=== PATIENT | male | born 1955 | race Caucasian/White ===

== ENCOUNTER 2016-07-26 07:30 | Inpatient (IN) | payer OTHER ==
[~2016-07-26] VITALS: Ht 182.9 cm; Wt 98.9 kg
[2016-08-02] MEDS ORDERED: MOME13HF2 INHALATION (01:54)
[2016-08-02] MEDS ORDERED: MONT4TAB10 PO (01:54)
[2016-08-02] MEDS ORDERED: ALBU8.5H3 INH ×2 (01:54→03:29)
[2016-08-02] MEDS ORDERED: CETI10CA PO (03:29)
[2016-08-02] MEDS ORDERED: GUAI473L22 PO (03:29)
[2016-08-02] MEDS ORDERED: PRED50TA PO (03:29)
[2016-08-29] VITALS (23 sets, daily range): BP systolic 87–138; BP diastolic 64–92; PULSE 72–109; RESP 12–28; Ht 182.9 cm; Wt 98.9 kg
[2016-08-29] MEDS ORDERED: CEFTRIAXONE 1 GM/NS 50 ML IVPB SCH (07:00)
[2016-08-29] MEDS ORDERED: FINA5TAB4 PO (11:57)
[2016-08-29] MEDS ORDERED: FLUT12HF2 IH (11:57)
[2016-08-29] MEDS ORDERED: TAMS0.4C2 PO (11:57)
[2016-08-29] MEDS ORDERED: MONT10TA24 PO (11:57)
[2016-08-29] MEDS ORDERED: ALBU8.5H3 INH (11:57)
[2016-08-29] MEDS ORDERED: LACTATED RINGER'S 1,000 ML IV SCH (12:00)
--- NOTE | 2016-08-29 12:37 | HPN ---
Date/Time of Note Date/Time of Note DATE: 08/29/16 TIME: 12:37 Interval H&P Admission Note Pt. seen H&P reviewed: No system changes SHERIE BETTS MD Aug 29, 2016 12:37
[2016-08-29] MEDS ORDERED: PROPOFOL 40 ML ONE (12:40)
[2016-08-29] MEDS ORDERED: ROCURONIUM 50 MG INJ ONE (12:40)
[2016-08-29] MEDS ORDERED: LIDOCAINE 2% (SDV) 5 ML INJ ONE (12:40)
[2016-08-29] MEDS ORDERED: NEOSTIGMINE 3 MG/3 ML SYRINGE ONE (12:40)
[2016-08-29] MEDS ORDERED: morphine SULFATE/PF (10 MG/10 ML) INJ ONE (12:40)
[2016-08-29] MEDS ORDERED: GLYCOPYRROLATE 0.4 MG INJ ONE (12:40)
[2016-08-29] MEDS ORDERED: SUCCINYLCHOLINE CHLORIDE 100 MG/5 ML SYG IV ONE (12:40)
[2016-08-29] MEDS ORDERED: FENTAnyl 50 MCG/ML VIAL ONE (12:40)
[2016-08-29] MEDS ORDERED: DEXAMETHASONE 4 MG/ML 1 ML INJ ONE (13:26)
[2016-08-29] MEDS ORDERED: ONDANSETRON 4 MG INJ IV PRN (14:00)
[2016-08-29] MEDS ORDERED: MEPERIDINE 25 MG INJ IV PRN (14:00)
[2016-08-29] MEDS ORDERED: HYDROmorphONE (0.2 MG/ML) 10ML SYG IV PRN ×3 (14:00)
[2016-08-29] MEDS ORDERED: METOCLOPRAMIDE 10 MG INJ IV PRN (14:00)
[2016-08-29] MEDS ORDERED: DIPHENHYDRAMINE 50 MG INJ IV PRN (14:00)
[2016-08-29] MEDS ORDERED: FENTAnyl 50 MCG/ML VIAL IV PRN ×2 (14:00)
[2016-08-29] MEDS ORDERED: hydrALAzine 20 MG INJ ONE (16:30)
[2016-08-29 17:01] LABS: HEMATOCRIT 18.7 % (42.0-52.0)
[2016-08-29 17:24] LABS: ADD SCAN DIFF NO
[2016-08-29 17:26] LABS: BASOPHILS % 0.2 % (0.0-2.0); EOSINOPHILS % 0.1 % (0.0-7.0); HEMATOCRIT 38.5 % (42.0-52.0); LYMPHOCYTES # 1.1 10^3/ul (0.8-2.9); LYMPHOCYTES % 8.8 % (15.0-51.0); MEAN CORPUSCULAR HEMOGLOBIN 30.3 pg (29.0-33.0); MEAN CORPUSCULAR HGB CONC 33.8 g/dl (32.0-37.0); MEAN CORPUSCULAR VOLUME 89.7 fl (82.0-101.0); MEAN PLATELET VOLUME 12.9 fl (7.4-10.4); MONOCYTE # 0.2 10^3/ul (0.3-0.9); MONOCYTES % 1.4 % (0.0-11.0); NEUTROPHIL # 11.2 10^3/ul (1.6-7.5); NEUTROPHILS % 88.7 % (39.0-77.0); PLATELET COUNT 156 10^3/UL (140-415); RED BLOOD COUNT 4.29 10^6/ul (4.70-6.10); RED CELL DISTRIBUTION WIDTH 12.6 % (11.5-14.5); WHITE BLOOD COUNT 12.7 10^3/ul (4.8-10.8)
[2016-08-29 17:35] LABS: ALBUMIN 2.9 g/dl (3.3-4.9)
[2016-08-29 17:38] LABS: ALBUMIN/GLOBULIN RATIO 1.16; BILIRUBIN,INDIRECT 0.4 mg/dl (0-1.1); BILIRUBIN,TOTAL 0.4 mg/dl (0.2-1.3); TOTAL PROTEIN 5.4 g/dl (6.1-8.1)
[2016-08-29 17:42] LABS: CALCIUM 8.6 mg/dl (8.4-10.2); CREATININE 0.6 mg/dl (0.61-1.24); POTASSIUM 4.2 mmol/L (3.5-5.1)
[2016-08-29 17:48] LABS: ADD SCAN DIFF NO
[2016-08-29 17:51] LABS: BASOPHIL # 0.1 10^3/ul (0.0-0.1); BASOPHILS % 0.3 % (0.0-2.0); EOSINOPHILS % 0.1 % (0.0-7.0); HEMATOCRIT 39.9 % (42.0-52.0); HEMOGLOBIN 13.6 g/dl (14.0-18.0); LYMPHOCYTES # 0.9 10^3/ul (0.8-2.9); LYMPHOCYTES % 5.3 % (15.0-51.0); MEAN CORPUSCULAR HEMOGLOBIN 30.4 pg (29.0-33.0); MEAN CORPUSCULAR HGB CONC 34.1 g/dl (32.0-37.0); MEAN CORPUSCULAR VOLUME 89.3 fl (82.0-101.0); MEAN PLATELET VOLUME 12.9 fl (7.4-10.4); MONOCYTE # 0.3 10^3/ul (0.3-0.9); MONOCYTES % 1.6 % (0.0-11.0); NEUTROPHIL # 16.2 10^3/ul (1.6-7.5); PLATELET COUNT 152 10^3/UL (140-415); RED BLOOD COUNT 4.47 10^6/ul (4.70-6.10); RED CELL DISTRIBUTION WIDTH 12.6 % (11.5-14.5); WHITE BLOOD COUNT 17.7 10^3/ul (4.8-10.8)
--- NOTE | 2016-08-29 18:17 | HP ---
Date/Time of Note Date/Time of Note DATE: 08/29/16 TIME: 18:12 Assessment/Plan VTE Prophylaxis VTE Prophylaxis Intervention: SCD's VTE Contraindication Reason: bleeding Lines/Catheters IV Catheter Type (from Nrsg): Peripheral IV Assessment/Plan Assessment/Plan 61 yo male with no significant past medical history who came in for outpatient surgery prostatectomy. 1. s/p Prostatectomy - as per urology, POD # 0 - pain management, monitor urine output 2. Anemia - acute blood loss - monitor H/H q6h - transfuse as needed 3. GI ppx - pepcid 4. DVT ppx - scds answered all of his questions. as per clinical course. Thank you Dr. Perez for letting me participate in the care of this patient this consult note took greater than 45 min to complete HPI/ROS Admit Date/Time Admit Date/Time Aug 29, 2016 at 10:24 Hx of Present Illness 61 yo male with no significant past medical history who came in for outpatient surgery prostatectomy. The patient had significant bleeding post-operatively and requires emergent transfusion and irrigation. He denies any chest pain, shortness of breath, loss of consciousness, nausea/vomiting/diarrhea/ constipation, or any other constitutional symptoms. ROS 14 point review of systems completed, please refer to HPI for any positive findings PMH/Family/Social Past Medical History Medical History: no pertinent history Past Surgical History left inguinal hernia Family History Significant Family History: no pertinent family hx Social History Alcohol Use: none Smoking Status: Never smoker Drug Use: none Exam/Review of Systems Vital Signs Vitals Vital Signs Date Time Temp Pulse Resp B/P Pulse Ox O2 Delivery O2 Flow Rate FiO2 08/29/16 17:24 98.2 08/29/16 11:59 72 16 138/90 97 Room Air Exam Exam Gen Herminio: mild distress 2/2 suprapubic pain, AAOx4 HEENT: NC/AT, PERRLA, EOMI, no pharyngeal erythema, no tonsillar exudates, no lymphadenopathy, no JVD, no carotid bruits NECK: supple, no thyromegaly THORAX: symmetrical, no obvious deformities CV: S1S2, RRR, no M/G/R Lungs: CTAB no W/C/R/R Abd: soft, NT/ND, +BS, no rebound, no guarding, neg HSM EXT: no edema, no ecchymosis, no clubbing, FROM Neuro: CN II-XII grossly intact, no focal deficits Psych: good mentation, alert and oriented, good mood and affect Skin: C/D/I Labs Result Diagram: 08/29/16 1745 08/29/16 1718 Medications Medications Current Medications Lactated Ringer's 1,000 ml @ 30 mls/hr Q24H IV ; Start 08/29/16 at 12:00 Dextrose/Sodium Chloride 1,000 ml @ 50 mls/hr Q20H IV ; Start 08/29/16 at 17:58 ; Status UNV Ceftriaxone Sodium (Rocephin) 50 ml @ 100 mls/hr Q24H IVPB ; Start 08/29/16 at 18:30; Status UNV Hydromorphone HCl (Dilaudid) 1 mg Q4H PRN IV PAIN; Start 08/29/16 at 18:30; Status UNV SHIVAM CHURCH MD Aug 29, 2016 18:17
[2016-08-29] MEDS: DEXTROSE 5%-0.45% NACL 1,000 ML IV SCH (20:32)
[2016-08-29] MEDS: CEFTRIAXONE 1 GM/50 ML (PMX) 50 ML IVPB SCH (20:42)
[2016-08-29] MEDS: HYDROmorphONE 1 MG/ML SYG IV PRN (23:02)
[2016-08-30] VITALS (24 sets, daily range): BP systolic 102–147; BP diastolic 46–95; PULSE 71–96; RESP 12–19
[2016-08-30] MEDS: HYDROmorphONE 1 MG/ML SYG IV PRN ×5 (03:31→20:27)
--- NOTE | 2016-08-30 06:37 | OPR ---
DATE OF OPERATION: 08/29/2016 PREOPERATIVE DIAGNOSIS: Benign prostatic hypertrophy with lower urinary tract symptoms and a very l arge prostate. POSTOPERATIVE DIAGNOSIS: Benign prostatic hypertrophy with lower urinary tract symptoms and a very large prostate. OPERATION PERFORMED: Suprapubic prostatectomy. TECHNIQUE: The patient was brought to the operating room. The patient was given 1 gram of ceftriax one IV and he was given spinal anesthesia was Duramorph by the anesthesiologist, and also was given general endotracheal anesthesia. Sequential compressive devices were applied on his lower extremiti es. The patient was positioned on the operating table in the supine position. A roll of towel was put underneath his sacral area to elevate his pelvic area. Then the lower abdomen was shaved. Then the patient's abdomen, genital area and upper thighs were prepped and draped in the usual sterile m joce. A low midline incision was made and deepened through the subcutaneous tissue. I put a 16-Fr ench Jones catheter, but the Jones catheter would not go in because of the large prostate. Then ins tead of a regular Jones I put in a Coude catheter. Then I inserted a 16-Haitian Coude catheter and t he Coude catheter went into the bladder. I filled up the bladder was about 360 mL of sterile normal saline to distend the bladder. A suprapubic incision was made and deepened through subcutaneous ti ssue. The linea alba in the midline was incised. Then the rectus muscle was retracted laterally, a nd the bladder was exposed. A Bookwalter retractor was then used to retract the abdominal sides. T hen stay sutures were put on the bladder with 0 Vicryl and then the bladder was opened and all the n ormal saline that was put inside of it was suctioned. The prostate had a very large median lobe prot ruding into the bladder. The ureteral orifices were identified, where urine was seen coming out of them. At that moment, using the electrocautery, I cauterized the mucosa on the prostate side away f rom the ureteral orifices, prostatic and bladder area, and then gradually started enucleating the pr ostate. It was a very large prostate and it took some work for it to be enucleated and make sure th at the ureteral orifices were away, and that is what we did first, by cutting the mucosa away from t he ureteral orifices. After the prostate was enucleated posteriorly, then laterally and then anteri jerrica, it was not much large anteriorly, it was mostly posteriorly and on both lateral sides. The Fo ty catheter that the patient had was removed and the prostate was removed en bloc in 1 piece. Then the prostatic fossa was packed with packed to control bleeders. Then I put Allis's at the bladder neck area at the 7 and 5 o'clock positions and then did a posterior interlocking running suture betw een the 5 and 7 o'clock positions using #0 Vicryl running interlocked sutures. Then I did also clos e it anteriorly from the 7 o'clock, all the way until around the 3 and 4 o'clock position. In [facility], all the [place] of the bladder neck was suture ligated with running interlocking sutures and it i s wide open. At that moment, I removed the packing and then also put other sutures below that and I did do electrocoagulation of any bleeders in the prostatic fossa that I could see. It appears that there was no active bleeding and at that moment I inserted a 24-Haitian 3-way 30-mL balloon Jones ca theter and brought that catheter all the way into the bladder. The balloon was initially inflated t o 60 mL of sterile water. Then I did close the bladder with 0 Vicryl running interlocking sutures, as well as reinforcing sutures in between. I inserted the 16-Haitian suprapubic catheter through the bladder incision and brought it out through the abdominal incision. Then I did insert the KYLAH drain and brought it through a different stab wound incision and then we ran continuous bladder irrigatio n through the suprapubic tube and coming out through the Jones catheter. The return was perfectly c lear and there was no active bleeding. Then I did close the linea alba with 0 Vicryl [id number] interrupted sutures. I put in a KYLAH drain and brought it through a different stab wound incision. The subcutaneous tissue was approximated with 3-0 Vicryl and the skin approximated with rosa maria. A t the end of the procedure, the incision was covered with sterile dressing and continuous bladder ir rigation was going from the suprapubic tube into the bladder and coming out through the urethral cat heter. As we were getting ready to move the patient suddenly he started bleeding in the Jones catheter and the bleeding was such that we had to increase the irrigation completely wide open, and even with nathalia t, the return was very bloody. I then had inflated the balloon of the Jones catheter with an additi onal 60 mL, for a total of about maybe 120 mL, and applied manual traction on the Jones catheter. I t did clear for a while, then started bleeding again, so I kept the patient in the operating room al l this time and made sure that the irrigation was running fast. I kept him over an hour and a half until I was able to see that the return was clear with the irrigation going in. At some time I even thought of reopening him to try to see where the bleeders were and try to take care of that, but fo rtunately, the irrigation was good enough and the traction was good enough to clear the urine and ke ep it draining. At that moment when he was stable, then we had him transferred to the recovery room , and from the recovery room he was transferred to the intensive care unit so we could monitor his b ladder irrigation and make sure that the irrigation does not go dry and that he does not bleed and c log his Jones catheter. Dictated By: SHERIE JAUREGUI/TERRI Conf#: [id number] DID#: [id number]
--- NOTE | 2016-08-30 08:59 | CONS ---
Date/Time of Note Date/Time of Note DATE: 08/30/16 TIME: 08:57 Assessment/Plan Assessment/Plan Additional Assessment/Plan 61 yo male with no significant past medical history who came in for outpatient surgery prostatectomy. 1. s/p Prostatectomy - as per urology, POD # 1 - pain management, monitor urine output 2. Anemia - acute blood loss - monitor H/H q6h - transfuse as needed - awaiting labs 3. GI ppx - pepcid 4. DVT ppx - scds answered all of his questions. as per clinical course. Thank you Dr. Perez for letting me participate in the care of this patient this consult note took greater than 35 min to complete Consultation Date/Type/Reason Admit Date/Time Aug 29, 2016 at 10:24 Initial Consult Date Type of Consultation: Medicine Reason for Consultation Medical Management Referring Provider: SHERIE PEREZ MD 24 HR Interval Summary Free Text/Dictation No overnight events. He notices less blood clots through the becerra. Denies any chest pain/shortness of breath. Spoke to the nurse about the care plan. 15 minutes spent. Exam/Review of Systems Vital Signs Vitals Vital Signs Date Time Temp Pulse Resp B/P Pulse Ox O2 Delivery O2 Flow Rate FiO2 08/30/16 08:00 98.7 89 16 107/74 99 Nasal Cannula 2.0 Intake and Output 08/29/16 08/29/16 08/30/16 15:00 23:00 07:00 Intake Total 4550 ml 300 ml Output Total 1710 ml 220 ml Balance 2840 ml 80 ml Exam Gen Herminio: mild distress 2/2 suprapubic pain, AAOx4 HEENT: NC/AT, PERRLA, EOMI, no pharyngeal erythema, no tonsillar exudates, no lymphadenopathy, no JVD, no carotid bruits NECK: supple, no thyromegaly THORAX: symmetrical, no obvious deformities CV: S1S2, RRR, no M/G/R Lungs: CTAB no W/C/R/R Abd: soft, NT/ND, +BS, no rebound, no guarding, neg HSM EXT: no edema, no ecchymosis, no clubbing, FROM Neuro: CN II-XII grossly intact, no focal deficits Psych: good mentation, alert and oriented, good mood and affect Skin: C/D/I Results Result Diagram: 08/29/16 1745 08/29/16 1718 Results 24 hrs Laboratory Tests Test 08/29/16 16:23 08/29/16 17:18 08/29/16 17:45 Hematocrit 18.7 L 38.5 #L 39.9 L Hemoglobin 6.0 *L 13.0 #L 13.6 L Alanine Aminotransferase (ALT/SGPT) 46 Albumin 2.9 L Albumin/Globulin Ratio 1.16 Alkaline Phosphatase 73 Anion Gap 13 Aspartate Amino Transf (AST/SGOT) 26 Basophils # 0.0 0.1 Basophils % 0.2 0.3 Blood Urea Nitrogen 11 Calcium Level 8.6 Carbon Dioxide Level 27 Chloride Level 104 Creatinine 0.60 L Direct Bilirubin 0.00 Eosinophils # 0.0 0.0 Eosinophils % 0.1 0.1 Globulin 2.50 Glucose Level 174 Indirect Bilirubin 0.4 Lymphocytes # 1.1 0.9 Lymphocytes % 8.8 L 5.3 L Mean Corpuscular Hemoglobin 30.3 30.4 Mean Corpuscular Hemoglobin Concent 33.8 34.1 Mean Corpuscular Volume 89.7 89.3 Mean Platelet Volume 12.9 H 12.9 H Monocytes # 0.2 L 0.3 Monocytes % 1.4 1.6 Neutrophils # 11.2 H 16.2 H Neutrophils % 88.7 H 92.0 H Nucleated Red Blood Cells # 0.0 0.0 Nucleated Red Blood Cells % 0.0 0.0 Platelet Count 156 152 Potassium Level 4.2 Red Blood Count 4.29 L 4.47 L Red Cell Distribution Width 12.6 12.6 Sodium Level 140 Total Bilirubin 0.4 Total Protein 5.4 L White Blood Count 12.7 H 17.7 #H Medications Medications Current Medications Dextrose/Sodium Chloride 1,000 ml @ 50 mls/hr Q20H IV Last administered on 20:32; Admin Dose 50 MLS/HR; Start 08/29/16 at 17:58 Ceftriaxone Sodium (Rocephin) 50 ml @ 100 mls/hr Q24H IVPB Last administered on 08/29/16 20:42; Admin Dose 100 MLS/HR; Start 08/29/16 at 18:30 Hydromorphone HCl (Dilaudid) 1 mg Q4H PRN IV PAIN Last administered on 08:32; Admin Dose 1 MG; Start 08/29/16 at 18:30 SHIVAM CHURCH MD Aug 30, 2016 08:59
[2016-08-30 09:19] LABS: POTASSIUM 4.8 mmol/L (3.5-5.1)
[2016-08-30 09:21] LABS: CREATININE 0.8 mg/dl (0.61-1.24)
[2016-08-30 09:23] LABS: CALCIUM 8.9 mg/dl (8.4-10.2)
[2016-08-30 09:42] LABS: HEMATOCRIT 38.1 % (42.0-52.0); HEMOGLOBIN 13.1 g/dl (14.0-18.0); LYMPHOCYTES # 1.1 10^3/ul (0.8-2.9); LYMPHOCYTES % 8.9 % (15.0-51.0); MEAN CORPUSCULAR HEMOGLOBIN 30.6 pg (29.0-33.0); MEAN CORPUSCULAR HGB CONC 34.3 g/dl (32.0-37.0); MEAN CORPUSCULAR VOLUME 89.4 fl (82.0-101.0); MEAN PLATELET VOLUME 12.3 fl (7.4-10.4); MONOCYTE # 0.9 10^3/ul (0.3-0.9); MONOCYTES % 7.6 % (0.0-11.0); NEUTROPHIL # 10.1 10^3/ul (1.6-7.5); NEUTROPHILS % 83.5 % (39.0-77.0); PLATELET COUNT 143 10^3/UL (140-440); RED BLOOD COUNT 4.26 10^6/ul (4.70-6.10); RED CELL DISTRIBUTION WIDTH 13.5 % (11.5-14.5); UNCORRECTED WBC 12.1 10^3/ul (4.8-10.8); WHITE BLOOD COUNT 12.1 10^3/ul (4.8-10.8)
[2016-08-30 09:51] LABS: CONDITION 1
[2016-08-30] MEDS: DEXTROSE 5%-0.45% NACL 1,000 ML IV SCH (10:38)
[2016-08-30] MEDS: FERROUS SULFATE (EC) 325 MG TAB PO SCH ×2 (10:43→20:27)
[2016-08-30] MEDS: DOCUSATE SODIUM 100 MG CAP PO SCH ×2 (10:43→20:27)
--- NOTE | 2016-08-30 11:35 | PN ---
DATE: 08/30/2016 SUBJECTIVE: The patient is status post suprapubic prostatectomy. The patient is on continuous blad ramos irrigation. He is feeling much better today and he is awake, alert and comfortable. He does lara ve pain that is being managed with pain medications. OBJECTIVE VITAL SIGNS: His temperature is 98.7, pulse is 89, respirations 16 and the blood pressure 107/74. ABDOMEN: Soft. The Jones catheter is draining clear urine with continuous bladder irrigation. In fact, the rate of the bladder irrigation is much slower today than it has been yesterday. LABORATORY DATA: CBC shows a white count of 12.1, hemoglobin is 13.1, hematocrit 38.1. The BUN is 14, creatinine 0.8. Electrolytes are normal. Urine culture no growth in 24 hours. Patient is on c eftriaxone and pain medications. IMPRESSION: Status post suprapubic prostatectomy. Vital signs are stable. His hemoglobin is 13.1. He received 1 unit of blood yesterday and he is doing well, so will continue him on the bladder ir rigation and I will also start him on ferrous sulfate and Colace. Dictated By: SHERIE JAUREGUI/TERRI Conf#: [id number] DID#: [id number]
[2016-08-30 12:18] LABS: BASOPHILS % 0.3 % (0.0-2.0); EOSINOPHILS % 0.3 % (0.0-7.0); HEMATOCRIT 36.2 % (42.0-52.0); HEMOGLOBIN 12.5 g/dl (14.0-18.0); LYMPHOCYTES # 1.3 10^3/ul (0.8-2.9); LYMPHOCYTES % 11.4 % (15.0-51.0); MEAN CORPUSCULAR HEMOGLOBIN 30.6 pg (29.0-33.0); MEAN CORPUSCULAR HGB CONC 34.5 g/dl (32.0-37.0); MEAN CORPUSCULAR VOLUME 88.8 fl (82.0-101.0); MEAN PLATELET VOLUME 11.1 fl (7.4-10.4); MONOCYTES % 8.5 % (0.0-11.0); NEUTROPHIL # 8.9 10^3/ul (1.6-7.5); NEUTROPHILS % 79.5 % (39.0-77.0); PLATELET COUNT 143 10^3/UL (140-440); RED BLOOD COUNT 4.08 10^6/ul (4.70-6.10); RED CELL DISTRIBUTION WIDTH 13.5 % (11.5-14.5); UNCORRECTED WBC 11.2 10^3/ul (4.8-10.8); WHITE BLOOD COUNT 11.2 10^3/ul (4.8-10.8)
[2016-08-30 12:21] LABS: CONDITION 1
[2016-08-30] MEDS: CEFTRIAXONE 1 GM/50 ML (PMX) 50 ML IVPB SCH (18:08)
[2016-08-30 18:57] LABS: BASOPHILS % 0.4 % (0.0-2.0); EOSINOPHILS # 0.1 10^3/ul (0.0-0.5); EOSINOPHILS % 0.8 % (0.0-7.0); HEMATOCRIT 37.6 % (42.0-52.0); HEMOGLOBIN 12.9 g/dl (14.0-18.0); LYMPHOCYTES # 1.8 10^3/ul (0.8-2.9); LYMPHOCYTES % 16.7 % (15.0-51.0); MEAN CORPUSCULAR HEMOGLOBIN 30.4 pg (29.0-33.0); MEAN CORPUSCULAR HGB CONC 34.3 g/dl (32.0-37.0); MEAN CORPUSCULAR VOLUME 88.7 fl (82.0-101.0); MEAN PLATELET VOLUME 11.7 fl (7.4-10.4); MONOCYTE # 0.9 10^3/ul (0.3-0.9); MONOCYTES % 8.5 % (0.0-11.0); NEUTROPHIL # 7.8 10^3/ul (1.6-7.5); NEUTROPHILS % 73.6 % (39.0-77.0); PLATELET COUNT 152 10^3/UL (140-440); RED BLOOD COUNT 4.24 10^6/ul (4.70-6.10); RED CELL DISTRIBUTION WIDTH 13.5 % (11.5-14.5); UNCORRECTED WBC 10.6 10^3/ul (4.8-10.8); WHITE BLOOD COUNT 10.6 10^3/ul (4.8-10.8)
[2016-08-30 18:59] LABS: CONDITION 1
[2016-08-30] MEDS: TOLTERODINE (SR) 4 MG CAP PO SCH (20:21)
[2016-08-31] VITALS (27 sets, daily range): BP systolic 125–168; BP diastolic 56–99; PULSE 82–100; RESP 14–25
[2016-08-31] MEDS: HYDROmorphONE 1 MG/ML SYG IV PRN ×6 (01:21→20:57)
[2016-08-31 01:33] LABS: BASOPHILS % 0.4 % (0.0-2.0); EOSINOPHILS # 0.1 10^3/ul (0.0-0.5); EOSINOPHILS % 0.6 % (0.0-7.0); HEMATOCRIT 35.7 % (42.0-52.0); HEMOGLOBIN 12.2 g/dl (14.0-18.0); LYMPHOCYTES # 1.6 10^3/ul (0.8-2.9); LYMPHOCYTES % 14.5 % (15.0-51.0); MEAN CORPUSCULAR HEMOGLOBIN 30.5 pg (29.0-33.0); MEAN CORPUSCULAR HGB CONC 34.2 g/dl (32.0-37.0); MEAN CORPUSCULAR VOLUME 89.3 fl (82.0-101.0); MEAN PLATELET VOLUME 12.5 fl (7.4-10.4); MONOCYTE # 0.9 10^3/ul (0.3-0.9); MONOCYTES % 8.4 % (0.0-11.0); NEUTROPHIL # 8.2 10^3/ul (1.6-7.5); NEUTROPHILS % 75.4 % (39.0-77.0); PLATELET COUNT 167 10^3/UL (140-415); WHITE BLOOD COUNT 10.8 10^3/ul (4.8-10.8)
[2016-08-31 04:46] LABS: BASOPHILS % 0.3 % (0.0-2.0); EOSINOPHILS # 0.1 10^3/ul (0.0-0.5); EOSINOPHILS % 0.5 % (0.0-7.0); HEMATOCRIT 37.2 % (42.0-52.0); HEMOGLOBIN 12.6 g/dl (14.0-18.0); LYMPHOCYTES # 1.4 10^3/ul (0.8-2.9); LYMPHOCYTES % 11.9 % (15.0-51.0); MEAN CORPUSCULAR HEMOGLOBIN 30.2 pg (29.0-33.0); MEAN CORPUSCULAR HGB CONC 33.9 g/dl (32.0-37.0); MEAN CORPUSCULAR VOLUME 89.2 fl (82.0-101.0); MONOCYTE # 0.9 10^3/ul (0.3-0.9); MONOCYTES % 7.5 % (0.0-11.0); NEUTROPHIL # 9.6 10^3/ul (1.6-7.5); NEUTROPHILS % 79.8 % (39.0-77.0); PLATELET COUNT 156 10^3/UL (140-440); POTASSIUM 4.2 mmol/L (3.5-5.1); RED BLOOD COUNT 4.17 10^6/ul (4.70-6.10); RED CELL DISTRIBUTION WIDTH 13.3 % (11.5-14.5); UNCORRECTED WBC 12.1 10^3/ul (4.8-10.8); WHITE BLOOD COUNT 12.1 10^3/ul (4.8-10.8)
[2016-08-31 04:49] LABS: CREATININE 0.83 mg/dl (0.61-1.24)
[2016-08-31 04:50] LABS: CALCIUM 8.6 mg/dl (8.4-10.2)
[2016-08-31 05:18] LABS: CONDITION 1
[2016-08-31] MEDS ORDERED: HYDROmorphONE 2 MG/ML SYG IV PRN (05:30)
[2016-08-31] MEDS: DEXTROSE 5%-0.45% NACL 1,000 ML IV SCH (06:56)
[2016-08-31] MEDS: TOLTERODINE (SR) 4 MG CAP PO SCH (08:17)
[2016-08-31] MEDS: DOCUSATE SODIUM 100 MG CAP PO SCH ×2 (08:18→21:37)
[2016-08-31] MEDS: FERROUS SULFATE (EC) 325 MG TAB PO SCH ×2 (08:18→21:37)
--- NOTE | 2016-08-31 08:59 | CONS ---
Date/Time of Note Date/Time of Note DATE: 08/31/16 TIME: 08:57 Assessment/Plan Assessment/Plan Additional Assessment/Plan 61 yo male with no significant past medical history who came in for outpatient surgery prostatectomy. 1. s/p Prostatectomy - as per urology, POD # 2 - pain management, monitor urine output 2. Anemia - acute blood loss - monitor H/H q6h - transfuse as needed - awaiting labs - s/p transfusion 1 unit PRBCs 3. GI ppx - pepcid 4. DVT ppx - scds answered all of his questions. as per clinical course. Thank you Dr. Perez for letting me participate in the care of this patient this consult note took greater than 35 min to complete Consultation Date/Type/Reason Admit Date/Time Aug 29, 2016 at 10:24 Type of Consultation: Medicine Referring Provider: SHERIE PEREZ MD 24 HR Interval Summary Free Text/Dictation Patient had no overnight events. Still with hematuria, improving once rate of normal saline flush increased. Spoke to the nurse about the care plan. 15 minutes spent. Exam/Review of Systems Vital Signs Vitals Vital Signs Date Time Temp Pulse Resp B/P Pulse Ox O2 Delivery O2 Flow Rate FiO2 08/31/16 08:40 95 08/31/16 08:00 99.0 16 139/89 92 Room Air 08/30/16 18:00 2.0 Intake and Output 08/30/16 08/30/16 08/31/16 15:00 23:00 07:00 Intake Total 1400 ml 1100 ml 350 ml Output Total 3050 ml 2025 ml 1725 ml Balance -1650 ml -925 ml -1375 ml Exam Gen Herminio: mild distress 2/2 suprapubic pain, AAOx4 HEENT: NC/AT, PERRLA, EOMI, no pharyngeal erythema, no tonsillar exudates, no lymphadenopathy, no JVD, no carotid bruits NECK: supple, no thyromegaly THORAX: symmetrical, no obvious deformities CV: S1S2, RRR, no M/G/R Lungs: CTAB no W/C/R/R Abd: soft, NT/ND, +BS, no rebound, no guarding, neg HSM EXT: no edema, no ecchymosis, no clubbing, FROM Neuro: CN II-XII grossly intact, no focal deficits Psych: good mentation, alert and oriented, good mood and affect Skin: C/D/I Results Result Diagram: 08/31/16 0400 08/31/16 0400 Results 24 hrs Laboratory Tests Test 08/30/16 12:04 08/30/16 18:15 08/31/16 00:50 08/31/16 04:00 Basophils # 0.0 0.0 0.0 0.0 Basophils % 0.3 0.4 0.4 0.3 Blood Morphology Comment Eosinophils # 0.0 0.1 0.1 0.1 Eosinophils % 0.3 0.8 0.6 0.5 Hematocrit 36.2 L 37.6 L 35.7 L 37.2 L Hemoglobin 12.5 L 12.9 L 12.2 L 12.6 L Lymphocytes # 1.3 1.8 1.6 1.4 Lymphocytes % 11.4 L 16.7 14.5 L 11.9 L Mean Corpuscular Hemoglobin 30.6 30.4 30.5 30.2 Mean Corpuscular Hemoglobin Concent 34.5 34.3 34.2 33.9 Mean Corpuscular Volume 88.8 88.7 89.3 89.2 Mean Platelet Volume 11.1 H 11.7 H 12.5 H 12.0 H Monocytes # 1.0 H 0.9 0.9 0.9 Monocytes % 8.5 8.5 8.4 7.5 Neutrophils # 8.9 H 7.8 H 8.2 H 9.6 H Neutrophils % 79.5 H 73.6 75.4 79.8 H Nucleated Red Blood Cells # 0.0 0.0 0.0 0.0 Nucleated Red Blood Cells % 0.0 0.0 0.0 0.0 Platelet Count 143 152 167 156 Red Blood Count 4.08 L 4.24 L 4.00 L 4.17 L Red Cell Distribution Width 13.5 13.5 13.0 13.3 White Blood Count 11.2 H 10.6 10.8 12.1 H Anion Gap 12 Blood Urea Nitrogen 13 Calcium Level 8.6 Carbon Dioxide Level 29 Chloride Level 100 Creatinine 0.83 Glucose Level 134 Potassium Level 4.2 Sodium Level 137 Medications Medications Current Medications Dextrose/Sodium Chloride 1,000 ml @ 50 mls/hr Q20H IV Last administered on 06:56; Admin Dose 50 MLS/HR; Start 08/29/16 at 17:58 Ceftriaxone Sodium (Rocephin) 50 ml @ 100 mls/hr Q24H IVPB Last administered on 08/30/16 18:08; Admin Dose 100 MLS/HR; Start 08/29/16 at 18:30 Hydromorphone HCl (Dilaudid) 1 mg Q4H PRN IV PAIN Last administered on 05:16; Admin Dose 1 MG; Start 08/29/16 at 18:30 Docusate Sodium (Colace) 100 mg BID PO Last administered on 08/31/16 08:18; Admin Dose 100 MG; Start 08/30/16 at 10:30 Ferrous Sulfate (Ferrous Sulfate (Ec)) 325 mg BID PO Last administered on 08:18; Admin Dose 325 MG; Start 08/30/16 at 10:30 Tolterodine Tartrate (Detrol La) 4 mg DAILY PO Last administered on 08/31/16 08:17; Admin Dose 4 MG; Start 08/30/16 at 20:00 Hydromorphone HCl (Dilaudid) 1.5 mg ONCE PRN IV PAIN; Start 08/31/16 at 05:30; Stop 08/31/16 at 12:00 SHIVAM CHURCH MD Aug 31, 2016 08:59
[2016-08-31 12:24] LABS: BASOPHIL # 0.1 10^3/ul (0.0-0.1); BASOPHILS % 0.6 % (0.0-2.0); EOSINOPHILS % 0.2 % (0.0-7.0); HEMATOCRIT 37.4 % (42.0-52.0); HEMOGLOBIN 12.8 g/dl (14.0-18.0); LYMPHOCYTES # 1.4 10^3/ul (0.8-2.9); MEAN CORPUSCULAR HEMOGLOBIN 30.3 pg (29.0-33.0); MEAN CORPUSCULAR HGB CONC 34.2 g/dl (32.0-37.0); MEAN CORPUSCULAR VOLUME 88.7 fl (82.0-101.0); MONOCYTE # 0.9 10^3/ul (0.3-0.9); MONOCYTES % 7.8 % (0.0-11.0); NEUTROPHIL # 9.1 10^3/ul (1.6-7.5); NEUTROPHILS % 79.4 % (39.0-77.0); PLATELET COUNT 168 10^3/UL (140-440); RED BLOOD COUNT 4.22 10^6/ul (4.70-6.10); RED CELL DISTRIBUTION WIDTH 13.5 % (11.5-14.5); UNCORRECTED WBC 11.5 10^3/ul (4.8-10.8); WHITE BLOOD COUNT 11.5 10^3/ul (4.8-10.8)
[2016-08-31 12:33] LABS: CONDITION 1
[2016-08-31 18:23] LABS: BASOPHIL # 0.1 10^3/ul (0.0-0.1); BASOPHILS % 0.5 % (0.0-2.0); EOSINOPHILS % 0.4 % (0.0-7.0); HEMATOCRIT 37.6 % (42.0-52.0); HEMOGLOBIN 12.8 g/dl (14.0-18.0); LYMPHOCYTES # 1.2 10^3/ul (0.8-2.9); LYMPHOCYTES % 10.9 % (15.0-51.0); MEAN CORPUSCULAR HEMOGLOBIN 30.2 pg (29.0-33.0); MEAN CORPUSCULAR VOLUME 88.8 fl (82.0-101.0); MEAN PLATELET VOLUME 11.5 fl (7.4-10.4); MONOCYTE # 1.1 10^3/ul (0.3-0.9); MONOCYTES % 9.5 % (0.0-11.0); NEUTROPHIL # 8.8 10^3/ul (1.6-7.5); NEUTROPHILS % 78.7 % (39.0-77.0); PLATELET COUNT 166 10^3/UL (140-440); RED BLOOD COUNT 4.23 10^6/ul (4.70-6.10); RED CELL DISTRIBUTION WIDTH 13.5 % (11.5-14.5); UNCORRECTED WBC 11.1 10^3/ul (4.8-10.8); WHITE BLOOD COUNT 11.1 10^3/ul (4.8-10.8)
[2016-08-31] MEDS: CEFTRIAXONE 1 GM/50 ML (PMX) 50 ML IVPB SCH (18:25)
[2016-08-31 18:39] LABS: CONDITION 1
--- NOTE | 2016-08-31 20:12 | PN ---
DATE: 08/31/2016 SUBJECTIVE: The patient is status post suprapubic prostatectomy, he has continuous bladder irrigati on. He complains of bladder spasm and suprapubic pain and the bladder irrigation is still on and it has to be run fast to keep the return clear. OBJECTIVE: VITAL SIGNS: His temperature is 99.1, pulse is 96, respirations 25, blood pressure 131/87. ABDOMEN: Soft and the dressing from his surgery is still intact. GENITOURINARY: The dressing around the tip of the penis is removed. It has some thin blood clots i n it. The Jones catheter is draining clear to clear-pinkish urine with continuous irrigation. LABORATORY DATA: CBC shows a white count of 11.1, the hemoglobin 12.8, hematocrit 37.6. The BUN is 13, creatinine 0.83. Electrolytes are normal. Urine culture: No growth in 48 hours. IMPRESSION: Stable postop but the patient still needs continuous bladder irrigation and as the irri gation is slowed down his urine turned more bloody. PLAN: To continue the bladder irrigation and gradually slow it down. The patient is on pain medica tions. He is on Detrol-LA for the bladder spasms, Colace to keep the bowel soft, ferrous sulfate to help with his making red cells since he had lost some blood and continue the ceftriaxone antibiotic to prevent any infection. I will also give him some Bentyl rectal suppository for bladder spasm as well as needed. Dictated By: SHERIE JAUREGUI/TERRI Conf#: [id number] DID#: [id number]
[2016-09-01] VITALS (23 sets, daily range): BP systolic 112–143; BP diastolic 60–112; PULSE 75–98; RESP 12–28
[2016-09-01] MEDS: HYDROmorphONE 1 MG/ML SYG IV PRN ×6 (00:58→20:17)
[2016-09-01] MEDS: DEXTROSE 5%-0.45% NACL 1,000 ML IV SCH ×2 (03:42→20:10)
[2016-09-01 05:57] LABS: POTASSIUM 3.9 mmol/L (3.5-5.1)
[2016-09-01 05:59] LABS: CREATININE 0.66 mg/dl (0.61-1.24)
[2016-09-01 06:00] LABS: CALCIUM 8.8 mg/dl (8.4-10.2)
[2016-09-01 06:06] LABS: BASOPHILS % 0.3 % (0.0-2.0); EOSINOPHILS # 0.1 10^3/ul (0.0-0.5); EOSINOPHILS % 0.9 % (0.0-7.0); HEMATOCRIT 36.2 % (42.0-52.0); HEMOGLOBIN 12.5 g/dl (14.0-18.0); LYMPHOCYTES # 1.4 10^3/ul (0.8-2.9); LYMPHOCYTES % 15.1 % (15.0-51.0); MEAN CORPUSCULAR HEMOGLOBIN 30.5 pg (29.0-33.0); MEAN CORPUSCULAR HGB CONC 34.4 g/dl (32.0-37.0); MEAN CORPUSCULAR VOLUME 88.8 fl (82.0-101.0); MEAN PLATELET VOLUME 11.2 fl (7.4-10.4); NEUTROPHILS % 73.7 % (39.0-77.0); PLATELET COUNT 167 10^3/UL (140-440); RED BLOOD COUNT 4.08 10^6/ul (4.70-6.10); UNCORRECTED WBC 9.5 10^3/ul (4.8-10.8); WHITE BLOOD COUNT 9.5 10^3/ul (4.8-10.8)
[2016-09-01 06:19] LABS: CONDITION 1
[2016-09-01] MEDS: BELLADONNA ALK/OPIUM SUPP PR PRN ×4 (08:11→23:26)
[2016-09-01] MEDS: DOCUSATE SODIUM 100 MG CAP PO SCH ×2 (08:24→20:10)
[2016-09-01] MEDS: FERROUS SULFATE (EC) 325 MG TAB PO SCH ×2 (08:24→20:10)
[2016-09-01] MEDS: TOLTERODINE (SR) 4 MG CAP PO SCH (08:25)
--- NOTE | 2016-09-01 10:39 | PN ---
DATE: 09/01/2016 SUBJECTIVE: Patient having bladder spasm, having severe abdominal pain and constant urge to urinate . The irrigation is running well and return is clear. OBJECTIVE: VITAL SIGNS: Show a temperature of 98.2, pulse is 82, respiration 12, blood pressure 128/82. ABDOMEN: Soft. The KYLAH drain draining small amount and drained about 115 mL. GENITOURINARY: The Jones catheter is intact and because of the bladder spasms I went ahead and took out 40 mL of the sterile water from the balloon. That should help decrease his bladder spasms. The patient was given B and O suppository and also the Dilaudid. LABORATORY DATA: The CBC shows a white count of 9.5, hemoglobin 12.5, hematocrit 36.2. BUN is 9, c reatinine 0.66. Electrolytes are normal. IMPRESSION: Reasonably good progress post suprapubic prostatectomy. The patient does have bladder spasm and for that he is being managed with B and O suppositories and getting Dilaudid and I also de creased the inflation of the balloon by 40 mL and that kept the urine clear and he responded well wi th decrease of his pain. Dictated By: SHERIE JAUREGUI/TERRI Conf#: [id number] DID#: [id number]
--- NOTE | 2016-09-01 14:15 | CONS ---
Date/Time of Note Date/Time of Note DATE: 09/01/16 TIME: 14:12 Consult Date/Type/Reason Admit Date/Time Aug 29, 2016 at 10:24 Initial Consult Date Type of Consultation: Medicine Ordering Provider: SHERIE PEREZ MD Subjective No acute events overnight. Still on CBI. Objective Vital Signs Date Time Temp Pulse Resp B/P Pulse Ox O2 Delivery O2 Flow Rate FiO2 09/01/16 13:09 90 09/01/16 06:00 12 128/82 92 Room Air 09/01/16 04:00 98.2 08/30/16 18:00 2.0 Intake and Output 08/31/16 08/31/16 09/01/16 15:00 23:00 07:00 Intake Total 900 ml 400 ml 345 ml Output Total 75 ml 20 ml 20 ml Balance 825 ml 380 ml 325 ml Gen Herminio: mild distress 2/2 suprapubic pain, AAOx4 HEENT: NC/AT, PERRLA, EOMI, no pharyngeal erythema, no tonsillar exudates, no lymphadenopathy, no JVD, no carotid bruits NECK: supple, no thyromegaly THORAX: symmetrical, no obvious deformities CV: S1S2, RRR, no M/G/R Lungs: CTAB no W/C/R/R Abd: soft, NT/ND, +BS, no rebound, no guarding, neg HSM EXT: no edema, no ecchymosis, no clubbing, FROM Neuro: CN II-XII grossly intact, no focal deficits Psych: good mentation, alert and oriented, good mood and affect Skin: C/D/I Results/Medications Result Diagram: 09/01/1615 09/01/16 0515 Results 24 hrs Laboratory Tests Test 08/31/16 17:58 09/01/16 05:15 Basophils # 0.1 0.0 Basophils % 0.5 0.3 Blood Morphology Comment Eosinophils # 0.0 0.1 Eosinophils % 0.4 0.9 Hematocrit 37.6 L 36.2 L Hemoglobin 12.8 L 12.5 L Lymphocytes # 1.2 1.4 Lymphocytes % 10.9 L 15.1 Mean Corpuscular Hemoglobin 30.2 30.5 Mean Corpuscular Hemoglobin Concent 34.0 34.4 Mean Corpuscular Volume 88.8 88.8 Mean Platelet Volume 11.5 H 11.2 H Monocytes # 1.1 H 1.0 H Monocytes % 9.5 10.0 Neutrophils # 8.8 H 7.0 Neutrophils % 78.7 H 73.7 Nucleated Red Blood Cells # 0.0 0.0 Nucleated Red Blood Cells % 0.0 0.0 Platelet Count 166 167 Red Blood Count 4.23 L 4.08 L Red Cell Distribution Width 13.5 13.0 White Blood Count 11.1 H 9.5 Anion Gap 12 Blood Urea Nitrogen 9 Calcium Level 8.8 Carbon Dioxide Level 28 Chloride Level 102 Creatinine 0.66 Glucose Level 128 Potassium Level 3.9 Sodium Level 138 Medications Current Medications Dextrose/Sodium Chloride 1,000 ml @ 50 mls/hr Q20H IV Last administered on 03:42; Admin Dose 50 MLS/HR; Start 08/29/16 at 17:58 Ceftriaxone Sodium (Rocephin) 50 ml @ 100 mls/hr Q24H IVPB Last administered on 08/31/16 18:25; Admin Dose 100 MLS/HR; Start 08/29/16 at 18:30 Hydromorphone HCl (Dilaudid) 1 mg Q4H PRN IV PAIN Last administered on 11:23; Admin Dose 1 MG; Start 08/29/16 at 18:30 Docusate Sodium (Colace) 100 mg BID PO Last administered on 09/01/16 08:24; Admin Dose 100 MG; Start 08/30/16 at 10:30 Ferrous Sulfate (Ferrous Sulfate (Ec)) 325 mg BID PO Last administered on 08:24; Admin Dose 325 MG; Start 08/30/16 at 10:30 Tolterodine Tartrate (Detrol La) 4 mg DAILY PO Last administered on 09/01/16 08:25; Admin Dose 4 MG; Start 08/30/16 at 20:00 Belladonna Alkaloids/Opium (B&O No.15a) 1 supp QID PRN [place] bladder spasm Last administered on 09/01/16 12:59; Admin Dose 1 SUPP; Start 08/31/16 at 20:00 Assessment/Plan Chief Complaint/Hosp Course Assessment/Plan: 61 yo male with no significant past medical history who came in for outpatient surgery prostatectomy. 1. s/p Prostatectomy - as per urology, POD # 3 - pain management, monitor urine output 2. Anemia - acute blood loss - monitor H/H q6h - transfuse as needed - awaiting labs - s/p transfusion 1 unit PRBCs earlier this admission. 3. GI ppx - pepcid 4. DVT ppx - scds Thank you Dr. Perez for letting me participate in the care of this patient Critical care time spent on pt care today = 40 min. Problems: PABLO MCDANIELS. Sep 01, 2016 14:15
--- NOTE | 2016-09-01 15:13 | PN ---
DATE: FOLLOWUP PROGRESS NOTE SUBJECTIVE: The patient is having bladder spasms and there is some urine leaking around the Jonse ca theter. I thought the patient may be having some blood clots, may be blocked, so I have seen him thi s morning, and I came back now to check him up, so first I did stop the irrigation and through the s uprapubic tube I irrigated the bladder and aspirated some blood clots out of there. Then I irrigated through the urethral 3-way Jones catheter and irrigated and what I pushed in I was able to get it a ll back, so there was no blockage of the large Jones catheter. Then I resumed the suprapubic irrigat ions through the suprapubic catheter and down through the regular catheter and the return was reason ably clear and patient is much more comfortable. Dictated By: SHERIE JAUREGUI/TERRI Conf#: [id number] DID#: [id number]
[2016-09-01] MEDS: CEFTRIAXONE 1 GM/50 ML (PMX) 50 ML IVPB SCH (18:17)
[2016-09-02] VITALS (29 sets, daily range): BP systolic 118–165; BP diastolic 69–115; PULSE 69–95; RESP 10–20
[2016-09-02] MEDS: HYDROmorphONE 1 MG/ML SYG IV PRN ×6 (00:26→20:32)
[2016-09-02] MEDS: morphine 4 MG/ML VIAL IV PRN ×5 (05:06→22:21)
[2016-09-02 07:12] LABS: BASOPHIL # 0.1 10^3/ul (0.0-0.1); BASOPHILS % 0.5 % (0.0-2.0); EOSINOPHILS # 0.1 10^3/ul (0.0-0.5); EOSINOPHILS % 1.5 % (0.0-7.0); HEMATOCRIT 36.4 % (42.0-52.0); HEMOGLOBIN 12.5 g/dl (14.0-18.0); LYMPHOCYTES # 1.6 10^3/ul (0.8-2.9); MEAN CORPUSCULAR HEMOGLOBIN 30.6 pg (29.0-33.0); MEAN CORPUSCULAR HGB CONC 34.3 g/dl (32.0-37.0); MEAN CORPUSCULAR VOLUME 89.1 fl (82.0-101.0); MEAN PLATELET VOLUME 11.4 fl (7.4-10.4); MONOCYTE # 0.9 10^3/ul (0.3-0.9); NEUTROPHIL # 7.4 10^3/ul (1.6-7.5); PLATELET COUNT 174 10^3/UL (140-440); RED BLOOD COUNT 4.09 10^6/ul (4.70-6.10); RED CELL DISTRIBUTION WIDTH 12.8 % (11.5-14.5); UNCORRECTED WBC 10.1 10^3/ul (4.8-10.8); WHITE BLOOD COUNT 10.1 10^3/ul (4.8-10.8)
[2016-09-02 07:15] LABS: POTASSIUM 3.9 mmol/L (3.5-5.1)
[2016-09-02 07:17] LABS: CREATININE 0.71 mg/dl (0.61-1.24)
[2016-09-02 07:18] LABS: CALCIUM 8.8 mg/dl (8.4-10.2)
[2016-09-02 07:35] LABS: CONDITION 1
[2016-09-02] MEDS: BELLADONNA ALK/OPIUM SUPP PR PRN ×2 (07:48→15:25)
[2016-09-02] MEDS: TOLTERODINE (SR) 4 MG CAP PO SCH (08:41)
[2016-09-02] MEDS: DOCUSATE SODIUM 100 MG CAP PO SCH ×2 (08:41→20:31)
[2016-09-02] MEDS: FERROUS SULFATE (EC) 325 MG TAB PO SCH ×2 (08:42→20:32)
--- NOTE | 2016-09-02 09:36 | PN ---
DATE: 09/02/2016 SUBJECTIVE: Status post suprapubic prostatectomy. The patient having a lot of bladder spasms still , but he is being managed with Detrol-LA 4 mg daily and B and O suppositories in addition to Dilaudi d for severe pain. The patient is tolerating his diet well. OBJECTIVE VITAL SIGNS: His temperature is 98.7, blood pressure 126/94, pulse is 78, respirations are 14. The dressing over the abdomen is still intact and clean. The KYLAH drain is draining a small amount. The last time was 5 mL. Yesterday it was 115 mL. The rate of the irrigation is slower than before and it is dripping rather than running a continuous stream. The return is clear to clear pink. LABORATORY DATA: CBC shows a white count of 10.1, hemoglobin 12.5, hematocrit 36.4. BUN is 12, cre atinine 0.71. Electrolytes are normal. IMPRESSION: Bladder spasm, status post suprapubic prostatectomy and hematuria requiring continuous bladder irrigation. The rate of the irrigation is slower than yesterday. The plan is to transfer t he patient to the [facility] med/surg, and I would like him to be in front of the nurse's station. Madsen gabriel, they could see if the irrigation is about to finish to change it rather than let it dry and hav e bleeding and cause problems. We will continue his present medications as well. The pathology rep ort is still pending. Dictated By: SHERIE JAUREGUI/TERRI Conf#: [id number] DID#: [id number]
--- NOTE | 2016-09-02 13:28 | CONS ---
Date/Time of Note Date/Time of Note DATE: 09/02/16 TIME: 13:27 Consult Date/Type/Reason Admit Date/Time Aug 29, 2016 at 10:24 Type of Consultation: Medicine Ordering Provider: SHERIE PEREZ MD Subjective Pt still on CBI, otherwise no acute events overnight. Objective Vital Signs Date Time Temp Pulse Resp B/P Pulse Ox O2 Delivery O2 Flow Rate FiO2 09/02/16 13:00 87 13 132/81 96 Nasal Cannula 2.0 09/02/16 12:00 98.6 Intake and Output 09/01/16 09/01/16 09/02/16 15:00 23:00 07:00 Intake Total 250 ml 400 ml Output Total 5 ml 2900 ml Balance -5 ml 250 ml -2500 ml Gen Herminio: mild distress 2/2 suprapubic pain, AAOx4 HEENT: NC/AT, PERRLA, EOMI, no pharyngeal erythema, no tonsillar exudates, no lymphadenopathy, no JVD, no carotid bruits NECK: supple, no thyromegaly THORAX: symmetrical, no obvious deformities CV: S1S2, RRR, no M/G/R Lungs: CTAB no W/C/R/R Abd: soft, NT/ND, +BS, no rebound, no guarding, neg HSM EXT: no edema, no ecchymosis, no clubbing, FROM Neuro: CN II-XII grossly intact, no focal deficits Psych: good mentation, alert and oriented, good mood and affect Skin: C/D/I Results/Medications Result Diagram: 09/02/16 0530 09/02/16 0530 Results 24 hrs Laboratory Tests Test 09/02/16 05:30 Anion Gap 11 Basophils # 0.1 Basophils % 0.5 Blood Morphology Comment Blood Urea Nitrogen 12 Calcium Level 8.8 Carbon Dioxide Level 29 Chloride Level 101 Creatinine 0.71 Eosinophils # 0.1 Eosinophils % 1.5 Glucose Level 125 Hematocrit 36.4 L Hemoglobin 12.5 L Lymphocytes # 1.6 Lymphocytes % 16.0 Mean Corpuscular Hemoglobin 30.6 Mean Corpuscular Hemoglobin Concent 34.3 Mean Corpuscular Volume 89.1 Mean Platelet Volume 11.4 H Monocytes # 0.9 Monocytes % 9.0 Neutrophils # 7.4 Neutrophils % 73.0 Nucleated Red Blood Cells # 0.0 Nucleated Red Blood Cells % 0.0 Platelet Count 174 Potassium Level 3.9 Red Blood Count 4.09 L Red Cell Distribution Width 12.8 Sodium Level 137 White Blood Count 10.1 Medications Current Medications Dextrose/Sodium Chloride 1,000 ml @ 50 mls/hr Q20H IV Last administered on 20:10; Admin Dose 50 MLS/HR; Start 08/29/16 at 17:58 Ceftriaxone Sodium (Rocephin) 50 ml @ 100 mls/hr Q24H IVPB Last administered on 09/01/16 18:17; Admin Dose 100 MLS/HR; Start 08/29/16 at 18:30 Hydromorphone HCl (Dilaudid) 1 mg Q4H PRN IV PAIN Last administered on 12:35; Admin Dose 1 MG; Start 08/29/16 at 18:30 Docusate Sodium (Colace) 100 mg BID PO Last administered on 09/02/16 08:41; Admin Dose 100 MG; Start 08/30/16 at 10:30 Ferrous Sulfate (Ferrous Sulfate (Ec)) 325 mg BID PO Last administered on 08:42; Admin Dose 325 MG; Start 08/30/16 at 10:30 Tolterodine Tartrate (Detrol La) 4 mg DAILY PO Last administered on 09/02/16 08:41; Admin Dose 4 MG; Start 08/30/16 at 20:00 Belladonna Alkaloids/Opium (B&O No.15a) 1 supp QID PRN [place] bladder spasm Last administered on 09/02/16 07:48; Admin Dose 1 SUPP; Start 08/31/16 at 20:00 Morphine Sulfate (morphine) 4 mg Q4H PRN IV pain/spasm Last administered on 09:57; Admin Dose 4 MG; Start 09/02/16 at 05:00 Assessment/Plan Chief Complaint/Hosp Course Assessment/Plan: 61 yo male with no significant past medical history who came in for outpatient surgery prostatectomy. 1. s/p Prostatectomy - as per urology, POD # 4 - pain management, monitor urine output 2. Anemia - acute blood loss - monitor H/H q6h - transfuse as needed - awaiting labs - s/p transfusion 1 unit PRBCs earlier this admission. 3. GI ppx - pepcid 4. DVT ppx - scds Thank you Dr. Perez for letting me participate in the care of this patient Critical care time spent on pt care today = 35 min. Problems: PABLO MCDANIELS Sep 02, 2016 13:28
[2016-09-02] MEDS: DEXTROSE 5%-0.45% NACL 1,000 ML IV SCH (15:21)
[2016-09-02] MEDS: CEFTRIAXONE 1 GM/50 ML (PMX) 50 ML IVPB SCH (17:22)
[2016-09-03] VITALS: BP 128/85; PULSE 82; RESP 17
[2016-09-03 00:04] VITALS: BP 122/77; RESP 19
[2016-09-03] MEDS: BELLADONNA ALK/OPIUM SUPP PR PRN ×2 (01:12→20:49)
[2016-09-03] MEDS: HYDROmorphONE 1 MG/ML SYG IV PRN ×5 (02:18→20:49)
[2016-09-03] MEDS: morphine 4 MG/ML VIAL IV PRN ×5 (03:55→23:53)
[2016-09-03 05:41] VITALS: BP 134/75; PULSE 78; RESP 17
[2016-09-03 07:16] VITALS: BP 134/78; RESP 16
[2016-09-03 07:42] LABS: BASOPHIL # 0.1 10^3/ul (0.0-0.1); BASOPHILS % 0.5 % (0.0-2.0); EOSINOPHILS # 0.3 10^3/ul (0.0-0.5); EOSINOPHILS % 2.7 % (0.0-7.0); HEMATOCRIT 36.7 % (42.0-52.0); HEMOGLOBIN 12.6 g/dl (14.0-18.0); LYMPHOCYTES # 1.7 10^3/ul (0.8-2.9); LYMPHOCYTES % 16.3 % (15.0-51.0); MEAN CORPUSCULAR HEMOGLOBIN 30.7 pg (29.0-33.0); MEAN CORPUSCULAR HGB CONC 34.2 g/dl (32.0-37.0); MEAN CORPUSCULAR VOLUME 89.8 fl (82.0-101.0); MEAN PLATELET VOLUME 10.5 fl (7.4-10.4); MONOCYTE # 0.9 10^3/ul (0.3-0.9); MONOCYTES % 8.4 % (0.0-11.0); NEUTROPHIL # 7.6 10^3/ul (1.6-7.5); NEUTROPHILS % 72.1 % (39.0-77.0); PLATELET COUNT 203 10^3/UL (140-440); RED BLOOD COUNT 4.09 10^6/ul (4.70-6.10); RED CELL DISTRIBUTION WIDTH 13.1 % (11.5-14.5); UNCORRECTED WBC 10.6 10^3/ul (4.8-10.8); WHITE BLOOD COUNT 10.6 10^3/ul (4.8-10.8)
[2016-09-03 07:50] LABS: CONDITION 1
[2016-09-03 07:51] LABS: POTASSIUM 4.5 mmol/L (3.5-5.1)
[2016-09-03 07:54] LABS: CREATININE 0.74 mg/dl (0.61-1.24)
[2016-09-03 07:55] LABS: CALCIUM 8.8 mg/dl (8.4-10.2)
[2016-09-03] MEDS: TOLTERODINE (SR) 4 MG CAP PO SCH (08:56)
[2016-09-03] MEDS: FERROUS SULFATE (EC) 325 MG TAB PO SCH ×2 (08:56→21:28)
[2016-09-03] MEDS: DOCUSATE SODIUM 100 MG CAP PO SCH ×2 (08:56→21:28)
--- NOTE | 2016-09-03 10:12 | PN ---
DATE: 09/03/2016 SUBJECTIVE: The patient is status post a suprapubic prostatectomy and has continuous bladder irriga tion. The patient having bladder spasms on and off. He is now in the med-surg floor and he is feel ing reasonably comfortable. OBJECTIVE: VITAL SIGNS: Temperature 98.2, blood pressure 134/78, pulse is 75, respirations 16. ABDOMEN: Soft. His dressing is intact. The Jones catheter is draining bloody urine now and probab ly the irrigation was very slow, so the nurse just opened it up and the blood clot came out. The angelo plata felt some pain at the time but then the urine cleared and we slowed down the irrigation. LABORATORY DATA: His CBC shows a white count of 10.6, hemoglobin 12.6. The BUN is 15, creatinine 0 .74. The pathology report came back as patient does have benign prostatic hypertrophy and the prost ate tissue that was removed was 128 grams. IMPRESSION: Good progress from the suprapubic prostatectomy. He is basically comfortable at the pr esent and we shall continue the bladder irrigation and he is on a regular diet and pain medications, antispasmodic, B and O suppositories and . Dictated By: SHERIE JAUREGUI/TERRI Conf#: [id number] DID#: [id number]
[2016-09-03] MEDS: DEXTROSE 5%-0.45% NACL 1,000 ML IV SCH (11:08)
[2016-09-03] MEDS ORDERED: POLYETHYLENE GLYCOL 17 GM PACKET PO PRN (11:30)
--- NOTE | 2016-09-03 12:31 | CONS ---
Date/Time of Note Date/Time of Note DATE: 09/03/16 TIME: 12:30 Consult Date/Type/Reason Admit Date/Time Aug 29, 2016 at 10:24 Type of Consultation: Medicine Ordering Provider: SHERIE PEREZ MD Subjective Pt out of ICU. Still on CBI. Objective Vital Signs Date Time Temp Pulse Resp B/P Pulse Ox O2 Delivery O2 Flow Rate FiO2 09/03/16 08:15 Nasal Cannula 2.0 09/03/16 07:16 98.2 75 16 134/78 97 Intake and Output 09/02/16 09/02/16 09/03/16 15:00 23:00 07:00 Intake Total 1360 ml 830 ml 950 ml Output Total 15 ml 5 ml 5 ml Balance 1345 ml 825 ml 945 ml Gen Herminio: mild distress 2/2 suprapubic pain, AAOx4 HEENT: NC/AT, PERRLA, EOMI, no pharyngeal erythema, no tonsillar exudates, no lymphadenopathy, no JVD, no carotid bruits NECK: supple, no thyromegaly THORAX: symmetrical, no obvious deformities CV: S1S2, RRR, no M/G/R Lungs: CTAB no W/C/R/R Abd: soft, NT/ND, +BS, no rebound, no guarding, neg HSM EXT: no edema, no ecchymosis, no clubbing, FROM Neuro: CN II-XII grossly intact, no focal deficits Psych: good mentation, alert and oriented, good mood and affect Skin: C/D/I Results/Medications Result Diagram: 09/03/16 0700 09/03/16 0700 Results 24 hrs Laboratory Tests Test 09/03/16 07:00 Anion Gap 11 Basophils # 0.1 Basophils % 0.5 Blood Morphology Comment Blood Urea Nitrogen 15 Calcium Level 8.8 Carbon Dioxide Level 33 H Chloride Level 99 Creatinine 0.74 Eosinophils # 0.3 Eosinophils % 2.7 Glucose Level 117 Hematocrit 36.7 L Hemoglobin 12.6 L Lymphocytes # 1.7 Lymphocytes % 16.3 Mean Corpuscular Hemoglobin 30.7 Mean Corpuscular Hemoglobin Concent 34.2 Mean Corpuscular Volume 89.8 Mean Platelet Volume 10.5 H Monocytes # 0.9 Monocytes % 8.4 Neutrophils # 7.6 H Neutrophils % 72.1 Nucleated Red Blood Cells # 0.0 Nucleated Red Blood Cells % 0.0 Platelet Count 203 Potassium Level 4.5 Red Blood Count 4.09 L Red Cell Distribution Width 13.1 Sodium Level 138 White Blood Count 10.6 Medications Current Medications Dextrose/Sodium Chloride 1,000 ml @ 50 mls/hr Q20H IV Last administered on 11:08; Admin Dose 50 MLS/HR; Start 08/29/16 at 17:58 Ceftriaxone Sodium (Rocephin) 50 ml @ 100 mls/hr Q24H IVPB Last administered on 09/02/16 17:22; Admin Dose 100 MLS/HR; Start 08/29/16 at 18:30 Hydromorphone HCl (Dilaudid) 1 mg Q4H PRN IV PAIN Last administered on 11:08; Admin Dose 1 MG; Start 08/29/16 at 18:30 Docusate Sodium (Colace) 100 mg BID PO Last administered on 09/03/16 08:56; Admin Dose 100 MG; Start 08/30/16 at 10:30 Ferrous Sulfate (Ferrous Sulfate (Ec)) 325 mg BID PO Last administered on 08:56; Admin Dose 325 MG; Start 08/30/16 at 10:30 Tolterodine Tartrate (Detrol La) 4 mg DAILY PO Last administered on 09/03/16 08:56; Admin Dose 4 MG; Start 08/30/16 at 20:00 Belladonna Alkaloids/Opium (B&O No.15a) 1 supp QID PRN ID bladder spasm Last administered on 09/03/16 01:12; Admin Dose 1 SUPP; Start 08/31/16 at 20:00 Morphine Sulfate (morphine) 4 mg Q4H PRN IV pain/spasm Last administered on 09:02; Admin Dose 4 MG; Start 09/02/16 at 05:00 Senna (Senokot) 1 tab BID PRN PO CONSTIPATION; Start 09/03/16 at 11:30 Polyethylene Glycol (Miralax) 17 gm DAILY PRN PO CONSTIPATION; Start 09/03/16 at 11:30 Assessment/Plan Chief Complaint/Hosp Course Assessment/Plan: 61 yo male with no significant past medical history who came in for outpatient surgery prostatectomy. 1. s/p Prostatectomy - as per urology, POD # 5 - pain management, monitor urine output 2. Anemia - acute blood loss - monitor H/H q6h - transfuse as needed - awaiting labs - s/p transfusion 1 unit PRBCs earlier this admission. 3. GI ppx - pepcid 4. DVT ppx - scds Thank you Dr. Perez for letting me participate in the care of this patient Problems: PABLO MCDANIELS Sep 03, 2016 12:31
[2016-09-03] MEDS: SENNA TAB PO PRN (13:13)
[2016-09-03] MEDS: CEFTRIAXONE 1 GM/50 ML (PMX) 50 ML IVPB SCH (18:40)
[2016-09-03 19:36] VITALS: BP 134/74; RESP 19
[2016-09-04] MEDS: HYDROmorphONE 1 MG/ML SYG IV PRN ×6 (02:29→22:38)
[2016-09-04] MEDS: DEXTROSE 5%-0.45% NACL 1,000 ML IV SCH ×2 (04:55→22:39)
[2016-09-04] MEDS: morphine 4 MG/ML VIAL IV PRN ×5 (04:55→21:27)
[2016-09-04 06:38] LABS: BASOPHIL # 0.1 10^3/ul (0.0-0.1); BASOPHILS % 0.6 % (0.0-2.0); EOSINOPHILS # 0.2 10^3/ul (0.0-0.5); EOSINOPHILS % 2.4 % (0.0-7.0); HEMATOCRIT 35.9 % (42.0-52.0); HEMOGLOBIN 12.3 g/dl (14.0-18.0); LYMPHOCYTES # 1.6 10^3/ul (0.8-2.9); LYMPHOCYTES % 15.8 % (15.0-51.0); MEAN CORPUSCULAR HEMOGLOBIN 30.7 pg (29.0-33.0); MEAN CORPUSCULAR HGB CONC 34.3 g/dl (32.0-37.0); MEAN CORPUSCULAR VOLUME 89.4 fl (82.0-101.0); MEAN PLATELET VOLUME 10.1 fl (7.4-10.4); MONOCYTE # 0.8 10^3/ul (0.3-0.9); MONOCYTES % 8.2 % (0.0-11.0); NEUTROPHIL # 7.2 10^3/ul (1.6-7.5); PLATELET COUNT 195 10^3/UL (140-440); RED BLOOD COUNT 4.01 10^6/ul (4.70-6.10); RED CELL DISTRIBUTION WIDTH 13.4 % (11.5-14.5); UNCORRECTED WBC 9.9 10^3/ul (4.8-10.8); WHITE BLOOD COUNT 9.9 10^3/ul (4.8-10.8)
[2016-09-04 06:41] LABS: POTASSIUM 4.8 mmol/L (3.5-5.1)
[2016-09-04 06:44] LABS: CREATININE 0.75 mg/dl (0.61-1.24)
[2016-09-04 06:45] LABS: CALCIUM 8.9 mg/dl (8.4-10.2)
[2016-09-04 06:49] LABS: CONDITION 1
[2016-09-04 08:07] VITALS: BP 129/73; RESP 18
[2016-09-04] MEDS ORDERED: MAGNESIUM HYDROXIDE 30ML CUP PO PRN (09:00)
[2016-09-04] MEDS ORDERED: MAGNESIUM HYDROXIDE 30ML CUP PO ONE (09:00)
[2016-09-04] MEDS: TOLTERODINE (SR) 4 MG CAP PO SCH (09:05)
[2016-09-04] MEDS: DOCUSATE SODIUM 100 MG CAP PO SCH ×2 (09:05→21:26)
[2016-09-04] MEDS: FERROUS SULFATE (EC) 325 MG TAB PO SCH ×2 (09:05→21:26)
--- NOTE | 2016-09-04 15:02 | CONS ---
Date/Time of Note Date/Time of Note DATE: 09/04/16 TIME: 15:01 Consult Date/Type/Reason Admit Date/Time Aug 29, 2016 at 10:24 Type of Consultation: Medicine Ordering Provider: SHERIE PEREZ MD Subjective Pt still on CBI, no acute events overnight. Objective Vital Signs Date Time Temp Pulse Resp B/P Pulse Ox O2 Delivery O2 Flow Rate FiO2 09/04/16 08:07 98.0 81 18 129/73 95 09/04/16 08:00 Nasal Cannula 2.0 Intake and Output 09/03/16 09/03/16 09/04/16 15:00 23:00 07:00 Intake Total 400 ml 1100 ml 1800 ml Output Total 2310 ml 61419 ml Balance 400 ml -1210 ml -8205 ml Gen Herminio: mild distress 2/2 suprapubic pain, AAOx4 HEENT: NC/AT, PERRLA, EOMI NECK: supple, no thyromegaly THORAX: symmetrical, no obvious deformities CV: S1S2, RRR, no M/G/R Lungs: CTAB no W/C/R/R Abd: soft, NT/ND, +BS, no rebound, no guarding, neg HSM EXT: no edema, no ecchymosis, no clubbing, FROM Neuro: CN II-XII grossly intact, no focal deficits Psych: good mentation, alert and oriented, good mood and affect Skin: C/D/I Results/Medications Result Diagram: 09/04/16 0605 09/04/16 0605 Results 24 hrs Laboratory Tests Test 09/04/16 06:05 Anion Gap 12 Basophils # 0.1 Basophils % 0.6 Blood Urea Nitrogen 12 Calcium Level 8.9 Carbon Dioxide Level 33 H Chloride Level 98 Creatinine 0.75 Eosinophils # 0.2 Eosinophils % 2.4 Glucose Level 119 Hematocrit 35.9 L Hemoglobin 12.3 L Lymphocytes # 1.6 Lymphocytes % 15.8 Mean Corpuscular Hemoglobin 30.7 Mean Corpuscular Hemoglobin Concent 34.3 Mean Corpuscular Volume 89.4 Mean Platelet Volume 10.1 Monocytes # 0.8 Monocytes % 8.2 Neutrophils # 7.2 Neutrophils % 73.0 Nucleated Red Blood Cells # 0.0 Nucleated Red Blood Cells % 0.0 Platelet Count 195 Potassium Level 4.8 Red Blood Count 4.01 L Red Cell Distribution Width 13.4 Sodium Level 138 White Blood Count 9.9 Medications Current Medications Dextrose/Sodium Chloride 1,000 ml @ 50 mls/hr Q20H IV Last administered on 04:55; Admin Dose 50 MLS/HR; Start 08/29/16 at 17:58 Ceftriaxone Sodium (Rocephin) 50 ml @ 100 mls/hr Q24H IVPB Last administered on 09/03/16 18:40; Admin Dose 100 MLS/HR; Start 08/29/16 at 18:30 Hydromorphone HCl (Dilaudid) 1 mg Q4H PRN IV PAIN Last administered on 14:33; Admin Dose 1 MG; Start 08/29/16 at 18:30 Docusate Sodium (Colace) 100 mg BID PO Last administered on 09/04/16 09:05; Admin Dose 100 MG; Start 08/30/16 at 10:30 Ferrous Sulfate (Ferrous Sulfate (Ec)) 325 mg BID PO Last administered on 09:05; Admin Dose 325 MG; Start 08/30/16 at 10:30 Tolterodine Tartrate (Detrol La) 4 mg DAILY PO Last administered on 09/04/16 09:05; Admin Dose 4 MG; Start 08/30/16 at 20:00 Belladonna Alkaloids/Opium (B&O No.15a) 1 supp QID PRN [place] bladder spasm Last administered on 09/03/16 20:49; Admin Dose 1 SUPP; Start 08/31/16 at 20:00 Morphine Sulfate (morphine) 4 mg Q4H PRN IV pain/spasm Last administered on 13:30; Admin Dose 4 MG; Start 09/02/16 at 05:00 Senna (Senokot) 1 tab BID PRN PO CONSTIPATION Last administered on 09/03/16 13 :13; Admin Dose 1 TAB; Start 09/03/16 at 11:30 Polyethylene Glycol (Miralax) 17 gm DAILY PRN PO CONSTIPATION Last administered on 09/03/16 13:13; Admin Dose 17 GM; Start 09/03/16 at 11:30 Magnesium Hydroxide (Milk Of Mag) 30 ml DAILY PRN PO CONSTIPATION; Start at 09:00 Assessment/Plan Chief Complaint/Hosp Course Assessment/Plan: 61 yo male with no significant past medical history who came in for outpatient surgery prostatectomy. 1. s/p Prostatectomy - as per urology, POD # 6 - pain management, monitor urine output, CBI per rec's. 2. Anemia - acute blood loss - monitor H/H q6h - transfuse as needed - awaiting labs - s/p transfusion 1 unit PRBCs earlier this admission. 3. GI ppx - pepcid 4. DVT ppx - scds Thank you Dr. Perez for letting me participate in the care of this patient Problems: PABLO MCDANIELS Sep 04, 2016 15:02
[2016-09-04] MEDS: CEFTRIAXONE 1 GM/50 ML (PMX) 50 ML IVPB SCH (18:43)
[2016-09-04 19:10] VITALS: BP 110/75; RESP 20
--- NOTE | 2016-09-04 20:50 | PN ---
DATE: 09/04/2016 SUBJECTIVE: The patient status post suprapubic prostatectomy, and he has continuous bladder irrigat ion going in through the suprapubic tube and coming out through the Jones catheter. His urine has b een blood tinged if the irrigation is slow, and the patient is having less bladder spasm, but he sti ll has them now and then. OBJECTIVE: VITAL SIGNS: His temperature is 98.0, pulse is 81, respiration 18, blood pressure 129/73. ABDOMEN: The dressing over his incision is clear, and the KYLAH drain is draining well and small amoun t, about 15 mL. LABORATORY DATA: His CBC shows a white count of 9.9, hemoglobin 12.3, hematocrit 35.9. BUN 12, cre atinine 0.75. IMPRESSION: Slowly progressing and stable. Still, however, needs the continuous irrigation, so we shall continue that and will ambulate him into sitting on the chair, and also maybe I will remove hi s KYLAH drain tomorrow. Once that is removed, then if the urine remains clear, we could stop the irrig ation, and then we could send him home with the Jones catheter. Dictated By: SHERIE JAUREGUI/TERRI Conf#: [id number] DID#: [id number]
[2016-09-05] MEDS: morphine 4 MG/ML VIAL IV PRN ×5 (01:31→19:57)
[2016-09-05] MEDS: HYDROmorphONE 1 MG/ML SYG IV PRN ×5 (02:46→21:08)
[2016-09-05 08:00] VITALS: BP 135/77; RESP 18
[2016-09-05] MEDS: FERROUS SULFATE (EC) 325 MG TAB PO SCH ×2 (08:33→21:07)
[2016-09-05] MEDS: TOLTERODINE (SR) 4 MG CAP PO SCH (08:33)
[2016-09-05] MEDS: DOCUSATE SODIUM 100 MG CAP PO SCH ×2 (08:33→21:08)
[2016-09-05 08:35] LABS: BASOPHIL # 0.1 10^3/ul (0.0-0.1); BASOPHILS % 0.5 % (0.0-2.0); EOSINOPHILS # 0.3 10^3/ul (0.0-0.5); EOSINOPHILS % 2.9 % (0.0-7.0); HEMATOCRIT 34.3 % (42.0-52.0); HEMOGLOBIN 11.9 g/dl (14.0-18.0); LYMPHOCYTES # 1.6 10^3/ul (0.8-2.9); LYMPHOCYTES % 15.2 % (15.0-51.0); MEAN CORPUSCULAR HEMOGLOBIN 30.9 pg (29.0-33.0); MEAN CORPUSCULAR HGB CONC 34.6 g/dl (32.0-37.0); MEAN CORPUSCULAR VOLUME 89.3 fl (82.0-101.0); MEAN PLATELET VOLUME 10.2 fl (7.4-10.4); MONOCYTE # 0.8 10^3/ul (0.3-0.9); MONOCYTES % 7.4 % (0.0-11.0); NEUTROPHIL # 7.6 10^3/ul (1.6-7.5); PLATELET COUNT 213 10^3/UL (140-440); RED BLOOD COUNT 3.84 10^6/ul (4.70-6.10); RED CELL DISTRIBUTION WIDTH 13.2 % (11.5-14.5); UNCORRECTED WBC 10.2 10^3/ul (4.8-10.8); WHITE BLOOD COUNT 10.2 10^3/ul (4.8-10.8)
[2016-09-05 08:49] LABS: POTASSIUM 4.5 mmol/L (3.5-5.1)
[2016-09-05 08:52] LABS: CREATININE 0.72 mg/dl (0.61-1.24)
[2016-09-05 08:53] LABS: CALCIUM 8.5 mg/dl (8.4-10.2)
[2016-09-05 09:04] LABS: CONDITION 1
--- NOTE | 2016-09-05 10:22 | CONS ---
Date/Time of Note Date/Time of Note DATE: 09/05/16 TIME: 10:21 Consult Date/Type/Reason Admit Date/Time Aug 29, 2016 at 10:24 Type of Consultation: Medicine Ordering Provider: SHERIE PEREZ MD Subjective No acute events overnight. Objective Vital Signs Date Time Temp Pulse Resp B/P Pulse Ox O2 Delivery O2 Flow Rate FiO2 09/05/16 08:00 98.0 82 18 135/77 93 09/04/16 22:00 Nasal Cannula 2.0 Intake and Output 09/04/16 09/04/16 09/05/16 14:59 22:59 06:59 Intake Total 1290 ml 1120 ml Output Total 1005 ml 7502 ml 1600 ml Balance -1005 ml -6212 ml -480 ml Gen Herminio: mild distress 2/2 suprapubic pain, AAOx4 HEENT: NC/AT, PERRLA, EOMI NECK: supple, no thyromegaly THORAX: symmetrical, no obvious deformities CV: S1S2, RRR, no M/G/R Lungs: CTAB no W/C/R/R Abd: soft, NT/ND, +BS, no rebound, no guarding, neg HSM EXT: no edema, no ecchymosis, no clubbing, FROM Neuro: CN II-XII grossly intact, no focal deficits Psych: good mentation, alert and oriented, good mood and affect Skin: C/D/I Results/Medications Result Diagram: 09/05/1681809/05/16 0819 Results 24 hrs Laboratory Tests Test 09/05/16 08:19 Anion Gap 12 Basophils # 0.1 Basophils % 0.5 Blood Urea Nitrogen 14 Calcium Level 8.5 Carbon Dioxide Level 31 Chloride Level 99 Creatinine 0.72 Eosinophils # 0.3 Eosinophils % 2.9 Glucose Level 114 Hematocrit 34.3 L Hemoglobin 11.9 L Lymphocytes # 1.6 Lymphocytes % 15.2 Mean Corpuscular Hemoglobin 30.9 Mean Corpuscular Hemoglobin Concent 34.6 Mean Corpuscular Volume 89.3 Mean Platelet Volume 10.2 Monocytes # 0.8 Monocytes % 7.4 Neutrophils # 7.6 H Neutrophils % 74.0 Nucleated Red Blood Cells # 0.0 Nucleated Red Blood Cells % 0.0 Platelet Count 213 Potassium Level 4.5 Red Blood Count 3.84 L Red Cell Distribution Width 13.2 Sodium Level 137 White Blood Count 10.2 Medications Current Medications Dextrose/Sodium Chloride 1,000 ml @ 50 mls/hr Q20H IV Last administered on 22:39; Admin Dose 50 MLS/HR; Start 08/29/16 at 17:58 Ceftriaxone Sodium (Rocephin) 50 ml @ 100 mls/hr Q24H IVPB Last administered on 09/04/16 18:43; Admin Dose 100 MLS/HR; Start 08/29/16 at 18:30 Hydromorphone HCl (Dilaudid) 1 mg Q4H PRN IV PAIN Last administered on 06:43; Admin Dose 1 MG; Start 08/29/16 at 18:30 Docusate Sodium (Colace) 100 mg BID PO Last administered on 09/05/16 08:33; Admin Dose 100 MG; Start 08/30/16 at 10:30 Ferrous Sulfate (Ferrous Sulfate (Ec)) 325 mg BID PO Last administered on 08:33; Admin Dose 325 MG; Start 08/30/16 at 10:30 Tolterodine Tartrate (Detrol La) 4 mg DAILY PO Last administered on 09/05/16 08:33; Admin Dose 4 MG; Start 08/30/16 at 20:00 Belladonna Alkaloids/Opium (B&O No.15a) 1 supp QID PRN [place] bladder spasm Last administered on 09/03/16 20:49; Admin Dose 1 SUPP; Start 08/31/16 at 20:00 Morphine Sulfate (morphine) 4 mg Q4H PRN IV pain/spasm Last administered on 05:51; Admin Dose 4 MG; Start 09/02/16 at 05:00 Senna (Senokot) 1 tab BID PRN PO CONSTIPATION Last administered on 09/03/16 13 :13; Admin Dose 1 TAB; Start 09/03/16 at 11:30 Polyethylene Glycol (Miralax) 17 gm DAILY PRN PO CONSTIPATION Last administered on 09/03/16 13:13; Admin Dose 17 GM; Start 09/03/16 at 11:30 Magnesium Hydroxide (Milk Of Mag) 30 ml DAILY PRN PO CONSTIPATION; Start at 09:00 Assessment/Plan Chief Complaint/Hosp Course Assessment/Plan: 61 yo male with no significant past medical history who came in for outpatient surgery prostatectomy. 1. s/p Prostatectomy - as per urology, POD # 7 - pain management, monitor urine output, CBI per rec's. 2. Anemia - acute blood loss - monitor H/H (stable presently) - transfuse as needed - awaiting labs - s/p transfusion 1 unit PRBCs earlier this admission. 3. GI ppx - pepcid 4. DVT ppx - scds Thank you Dr. Perez for letting me participate in the care of this patient Problems: PABLO MCDANIELS Sep 05, 2016 10:22
[2016-09-05] MEDS: CEFTRIAXONE 1 GM/50 ML (PMX) 50 ML IVPB SCH (16:52)
--- NOTE | 2016-09-05 16:53 | PN ---
DATE: 09/05/2016 SUBJECTIVE: The patient is status post suprapubic prostatectomy. He has a suprapubic tube and a 3- way Jones catheter, and he is still getting continuous bladder irrigation coming from the suprapubic area into the bladder and out through the urethral catheter. The rate of the irrigation has been d ecreased, but he still has occasional bleeding that needs to increase the irrigation. The patient i s tolerating his diet well, and he has not had a bowel movement. OBJECTIVE: VITAL SIGNS: Temperature 98.0, pulse 82, respiration 18, blood pressure 135/77. ABDOMEN: Soft. The dressing from over the incision is still clean and dry. The KYLAH drain is draini ng only about 7 mL, so we will probably take it out tomorrow morning. LABORATORY DATA: CBC shows a white count of 10.2, hemoglobin 11.9, hematocrit 34.3. BUN 14, creati nine 0.72. IMPRESSION: Status post suprapubic prostatectomy, progressing slowly but well. PLAN: To continue with the bladder irrigation for now. I will remove the KYLAH drain tomorrow. I enc ouraged the patient to drink a lot of water so we could keep the urine cleared by drinking water rat her than having bladder irrigation, and once the return is clear just from drinking water, then we w ill discontinue the continuous bladder irrigation and then will be ready to send him home with the F oley catheter and followup in the office as an outpatient. Dictated By: SHERIE JAUREGUI/TERRI Conf#: [id number] DID#: [id number]
[2016-09-05 20:06] VITALS: BP 135/79; RESP 20
[2016-09-06] MEDS: morphine 4 MG/ML VIAL IV PRN ×3 (00:05→19:43)
[2016-09-06] MEDS: HYDROmorphONE 1 MG/ML SYG IV PRN ×5 (01:28→23:45)
[2016-09-06] MEDS: DEXTROSE 5%-0.45% NACL 1,000 ML IV SCH (05:58)
[2016-09-06 06:32] LABS: BASOPHIL # 0.1 10^3/ul (0.0-0.1); BASOPHILS % 0.5 % (0.0-2.0); EOSINOPHILS # 0.3 10^3/ul (0.0-0.5); EOSINOPHILS % 2.5 % (0.0-7.0); HEMATOCRIT 35.3 % (42.0-52.0); HEMOGLOBIN 12.1 g/dl (14.0-18.0); LYMPHOCYTES # 1.5 10^3/ul (0.8-2.9); MEAN CORPUSCULAR HEMOGLOBIN 30.5 pg (29.0-33.0); MEAN CORPUSCULAR HGB CONC 34.2 g/dl (32.0-37.0); MEAN CORPUSCULAR VOLUME 89.2 fl (82.0-101.0); MEAN PLATELET VOLUME 10.5 fl (7.4-10.4); MONOCYTE # 0.8 10^3/ul (0.3-0.9); MONOCYTES % 7.4 % (0.0-11.0); NEUTROPHIL # 8.8 10^3/ul (1.6-7.5); NEUTROPHILS % 76.6 % (39.0-77.0); PLATELET COUNT 233 10^3/UL (140-440); RED BLOOD COUNT 3.96 10^6/ul (4.70-6.10); RED CELL DISTRIBUTION WIDTH 13.5 % (11.5-14.5); UNCORRECTED WBC 11.4 10^3/ul (4.8-10.8); WHITE BLOOD COUNT 11.4 10^3/ul (4.8-10.8)
[2016-09-06 06:39] LABS: CONDITION 1
[2016-09-06 07:01] LABS: POTASSIUM 4.7 mmol/L (3.5-5.1)
[2016-09-06 07:03] LABS: CREATININE 0.74 mg/dl (0.61-1.24)
[2016-09-06 07:04] LABS: CALCIUM 8.8 mg/dl (8.4-10.2)
[2016-09-06 07:24] VITALS: BP 133/82; RESP 16
[2016-09-06] MEDS: FERROUS SULFATE (EC) 325 MG TAB PO SCH ×2 (08:02→20:54)
[2016-09-06] MEDS: TOLTERODINE (SR) 4 MG CAP PO SCH (08:02)
[2016-09-06] MEDS: DOCUSATE SODIUM 100 MG CAP PO SCH ×2 (08:02→20:54)
[2016-09-06] MEDS: SENNA TAB PO PRN (08:03)
--- NOTE | 2016-09-06 11:30 | CONS ---
Date/Time of Note Date/Time of Note DATE: 09/06/16 TIME: 11:29 Consult Date/Type/Reason Admit Date/Time Aug 29, 2016 at 10:24 Type of Consultation: Medicine Ordering Provider: SHERIE PEREZ MD Subjective Seen by team today, no acute events overnight. Objective Vital Signs Date Time Temp Pulse Resp B/P Pulse Ox O2 Delivery O2 Flow Rate FiO2 09/06/16 07:24 98.1 80 16 133/82 99 09/05/16 17:17 21 09/04/16 22:00 Nasal Cannula 2.0 Intake and Output 09/05/16 09/05/16 09/06/16 15:00 23:00 07:00 Intake Total 1850 ml 700 ml Output Total 3205 ml 2300 ml Balance -1355 ml -1600 ml Gen Herminio: mild distress 2/2 suprapubic pain, AAOx4 HEENT: NC/AT, PERRLA, EOMI NECK: supple, no thyromegaly THORAX: symmetrical, no obvious deformities CV: S1S2, RRR, no M/G/R Lungs: CTAB no W/C/R/R Abd: soft, NT/ND, +BS, no rebound, no guarding, neg HSM EXT: no edema, no ecchymosis, no clubbing, FROM Neuro: CN II-XII grossly intact, no focal deficits Psych: good mentation, alert and oriented, good mood and affect Skin: C/D/I Results/Medications Result Diagram: 09/06/16 0503 09/06/16 0603 Results 24 hrs Laboratory Tests Test 09/06/16 05:03 09/06/16 06:03 Basophils # 0.1 Basophils % 0.5 Blood Morphology Comment Eosinophils # 0.3 Eosinophils % 2.5 Hematocrit 35.3 L Hemoglobin 12.1 L Lymphocytes # 1.5 Lymphocytes % 13.0 L Mean Corpuscular Hemoglobin 30.5 Mean Corpuscular Hemoglobin Concent 34.2 Mean Corpuscular Volume 89.2 Mean Platelet Volume 10.5 H Monocytes # 0.8 Monocytes % 7.4 Neutrophils # 8.8 H Neutrophils % 76.6 Nucleated Red Blood Cells # 0.0 Nucleated Red Blood Cells % 0.0 Platelet Count 233 Red Blood Count 3.96 L Red Cell Distribution Width 13.5 White Blood Count 11.4 H Anion Gap 12 Blood Urea Nitrogen 13 Calcium Level 8.8 Carbon Dioxide Level 33 H Chloride Level 99 Creatinine 0.74 Glucose Level 110 Potassium Level 4.7 Sodium Level 139 Medications Current Medications Dextrose/Sodium Chloride 1,000 ml @ 50 mls/hr Q20H IV Last administered on 22:39; Admin Dose 50 MLS/HR; Start 08/29/16 at 17:58 Ceftriaxone Sodium (Rocephin) 50 ml @ 100 mls/hr Q24H IVPB Last administered on 09/05/16 16:52; Admin Dose 100 MLS/HR; Start 08/29/16 at 18:30 Hydromorphone HCl (Dilaudid) 1 mg Q4H PRN IV PAIN Last administered on 11:00; Admin Dose 1 MG; Start 08/29/16 at 18:30 Docusate Sodium (Colace) 100 mg BID PO Last administered on 09/06/16 08:02; Admin Dose 100 MG; Start 08/30/16 at 10:30 Ferrous Sulfate (Ferrous Sulfate (Ec)) 325 mg BID PO Last administered on 08:02; Admin Dose 325 MG; Start 08/30/16 at 10:30 Tolterodine Tartrate (Detrol La) 4 mg DAILY PO Last administered on 09/06/16 08:02; Admin Dose 4 MG; Start 08/30/16 at 20:00 Belladonna Alkaloids/Opium (B&O No.15a) 1 supp QID PRN [place] bladder spasm Last administered on 09/03/16 20:49; Admin Dose 1 SUPP; Start 08/31/16 at 20:00 Morphine Sulfate (morphine) 4 mg Q4H PRN IV pain/spasm Last administered on 04:42; Admin Dose 4 MG; Start 09/02/16 at 05:00 Senna (Senokot) 1 tab BID PRN PO CONSTIPATION Last administered on 09/06/16 08 :03; Admin Dose 1 TAB; Start 09/03/16 at 11:30 Polyethylene Glycol (Miralax) 17 gm DAILY PRN PO CONSTIPATION Last administered on 09/03/16 13:13; Admin Dose 17 GM; Start 09/03/16 at 11:30 Magnesium Hydroxide (Milk Of Mag) 30 ml DAILY PRN PO CONSTIPATION Last administered on 09/06/16t 01:35; Admin Dose 30 ML; Start 09/04/16 at 09:00 Assessment/Plan Chief Complaint/Hosp Course Assessment/Plan: 61 yo male with no significant past medical history who came in for outpatient surgery prostatectomy. 1. s/p Prostatectomy - as per urology, POD # 8 - pain management, monitor urine output, CBI per rec's - may clamp CBI today and monitor.. 2. Anemia - acute blood loss - monitor H/H (stable presently) - transfuse as needed - awaiting labs - s/p transfusion 1 unit PRBCs earlier this admission. 3. GI ppx - pepcid 4. DVT ppx - scds Thank you Dr. Perez for letting me participate in the care of this patient Problems: PABLO MCDANIELS Sep 06, 2016 11:30
--- NOTE | 2016-09-06 11:40 | PN ---
DATE: SUBJECTIVE: Status post suprapubic prostatectomy. He is feeling better and having less bladder spa sms. OBJECTIVE: VITAL SIGNS: His temperature is 98.1, pulse is 80, respirations 16, blood pressure 133/82. ABDOMEN: Soft. I removed the dressing over the abdominal incision and apparently he does have a bl ister in the upper left side of the abdomen that was drained, and will put some nonadherent dressing on it. The KYLAH drain has been draining very small amount about 7 mL, so I went ahead and removed th e KYLAH drain. The Jones catheter is draining well and the urine is pinkish. I had stopped the irrig ation through the suprapubic tube and encouraged the patient to drink a lot of water, so he could ge t up and walk around with only having the Jones catheter in place. If he does keep the urine clear, then we may be able to send him home tomorrow with the Jones catheter, and then later on we will ta ke the catheter out in the office. LABORATORY DATA: CBC today shows a white count of 11.4, hemoglobin 12.1, hematocrit 35.3. BUN is 1 3, creatinine 0.74. Electrolytes are normal. PLAN: Stop the irrigation and to encourage p.o. fluids and try to see if he could ambulate more. Dictated By: SHERIE JAUREGUI/TERRI Conf#: [id number] DID#: [id number]
[2016-09-06] MEDS: CEFTRIAXONE 1 GM/50 ML (PMX) 50 ML IVPB SCH (17:14)
[2016-09-06 20:00] VITALS: BP 135/81; RESP 18
[2016-09-07] MEDS: morphine 4 MG/ML VIAL IV PRN ×6 (03:06→22:38)
[2016-09-07 07:24] VITALS: BP 137/81; RESP 18
[2016-09-07] MEDS: HYDROmorphONE 1 MG/ML SYG IV PRN ×4 (07:40→20:30)
--- NOTE | 2016-09-07 11:00 | CONS ---
Date/Time of Note Date/Time of Note DATE: 09/07/16 TIME: 10:58 Consult Date/Type/Reason Admit Date/Time Aug 29, 2016 at 10:24 Type of Consultation: Medicine Ordering Provider: SHERIE PEREZ MD Subjective CBI stopped yesterday, per nursing, pt still with some bright red hematuria, otherwise no acute events overnight. Objective Vital Signs Date Time Temp Pulse Resp B/P Pulse Ox O2 Delivery O2 Flow Rate FiO2 09/07/16 07:24 98.6 98 18 137/81 100 09/05/16 17:17 21 09/04/16 22:00 Nasal Cannula 2.0 Intake and Output 09/06/16 09/06/16 09/07/16 15:00 23:00 07:00 Intake Total 990 ml 1520 ml Output Total 5 ml 1100 ml 1250 ml Balance -5 ml -110 ml 270 ml Gen Herminio: mild distress 2/2 suprapubic pain, AAOx4 HEENT: NC/AT, PERRLA, EOMI NECK: supple, no thyromegaly THORAX: symmetrical, no obvious deformities CV: S1S2, RRR, no M/G/R Lungs: CTAB no W/C/R/R Abd: soft, NT/ND, +BS, no rebound, no guarding, neg HSM EXT: no edema, no ecchymosis, no clubbing, FROM Neuro: CN II-XII grossly intact, no focal deficits Psych: good mentation, alert and oriented, good mood and affect Skin: C/D/I Results/Medications Result Diagram: 09/06/16 0503 09/06/16 0603 Medications Current Medications Ceftriaxone Sodium (Rocephin) 50 ml @ 100 mls/hr Q24H IVPB Last administered on 09/06/16 17:14; Admin Dose 100 MLS/HR; Start 08/29/16 at 18:30 Hydromorphone HCl (Dilaudid) 1 mg Q4H PRN IV PAIN Last administered on 07:40; Admin Dose 1 MG; Start 08/29/16 at 18:30 Docusate Sodium (Colace) 100 mg BID PO Last administered on 09/06/16 20:54; Admin Dose 100 MG; Start 08/30/16 at 10:30 Ferrous Sulfate (Ferrous Sulfate (Ec)) 325 mg BID PO Last administered on 20:54; Admin Dose 325 MG; Start 08/30/16 at 10:30 Tolterodine Tartrate (Detrol La) 4 mg DAILY PO Last administered on 09/06/16 08:02; Admin Dose 4 MG; Start 08/30/16 at 20:00 Belladonna Alkaloids/Opium (B&O No.15a) 1 supp QID PRN [place] bladder spasm Last administered on 09/03/16 20:49; Admin Dose 1 SUPP; Start 08/31/16 at 20:00 Morphine Sulfate (morphine) 4 mg Q4H PRN IV pain/spasm Last administered on 08:20; Admin Dose 4 MG; Start 09/02/16 at 05:00 Senna (Senokot) 1 tab BID PRN PO CONSTIPATION Last administered on 09/06/16 08 :03; Admin Dose 1 TAB; Start 09/03/16 at 11:30 Polyethylene Glycol (Miralax) 17 gm DAILY PRN PO CONSTIPATION Last administered on 09/03/16 13:13; Admin Dose 17 GM; Start 09/03/16 at 11:30 Magnesium Hydroxide (Milk Of Mag) 30 ml DAILY PRN PO CONSTIPATION Last administered on 09/06/16 01:35; Admin Dose 30 ML; Start 09/04/16 at 09:00 Assessment/Plan Chief Complaint/Hosp Course Assessment/Plan: 61 yo male with no significant past medical history who came in for outpatient surgery prostatectomy. 1. s/p Prostatectomy - as per urology, POD # 9 - pain management, monitor urine output, CBI presently off since yesterday, monitor. 2. Anemia - acute blood loss - s/p transfusion 1 unit PRBCs earlier this admission -will check H/H today as well. 3. GI ppx - pepcid 4. DVT ppx - scds Thank you Dr. Perez for letting me participate in the care of this patient Problems: PABLO MCDANIELS Sep 07, 2016 11:00
[2016-09-07] MEDS: DOCUSATE SODIUM 100 MG CAP PO SCH ×2 (12:04→20:30)
[2016-09-07] MEDS: FERROUS SULFATE (EC) 325 MG TAB PO SCH ×2 (12:04→20:30)
[2016-09-07] MEDS: TOLTERODINE (SR) 4 MG CAP PO SCH (12:04)
--- NOTE | 2016-09-07 14:08 | PN ---
DATE: 09/07/2016 SUBJECTIVE: Status post suprapubic prostatectomy. Patient had a continuous bladder irrigation, whi ch was started yesterday. He is drinking plenty of water, and he does occasionally have bladder spa sms, and he does have some bleeding around the Jones catheter. OBJECTIVE VITAL SIGNS: His temperature is 98.6, pulse is 98, blood pressure 137/81, respiration 18. ABDOMEN: Soft. The incision is clean and dry. The urine in the Jones catheter is blood-tinged, oc casional clots, and he does have some bloody drainage around the Jones catheter. PLAN: To discontinue the bladder irrigation. Plug the suprapubic tube with a catheter plug. Dae nue to encourage him to drink a lot of fluid, and he could walk around with the Jones catheter and t he drainage bag. We will also check his CBC and to send urine for culture. Dictated By: SHERIE JAUREGUI/TERRI Conf#: [id number] DID#: [id number]
[2016-09-07 21:04] VITALS: BP 140/83; RESP 21
[2016-09-08] MEDS: HYDROmorphONE 1 MG/ML SYG IV PRN (01:12)
[2016-09-08] MEDS: morphine 4 MG/ML VIAL IV PRN (04:18)
[2016-09-08 05:40] LABS: POTASSIUM 4.2 mmol/L (3.5-5.1)
[2016-09-08 05:42] LABS: CREATININE 0.72 mg/dl (0.61-1.24)
[2016-09-08 05:43] LABS: CALCIUM 8.9 mg/dl (8.4-10.2)
[2016-09-08 06:39] LABS: BASOPHIL # 0.1 10^3/ul (0.0-0.1); BASOPHILS % 0.6 % (0.0-2.0); EOSINOPHILS # 0.2 10^3/ul (0.0-0.5); EOSINOPHILS % 2.3 % (0.0-7.0); HEMATOCRIT 34.7 % (42.0-52.0); HEMOGLOBIN 11.8 g/dl (14.0-18.0); LYMPHOCYTES # 2.1 10^3/ul (0.8-2.9); LYMPHOCYTES % 19.2 % (15.0-51.0); MEAN CORPUSCULAR HEMOGLOBIN 30.6 pg (29.0-33.0); MEAN CORPUSCULAR VOLUME 89.8 fl (82.0-101.0); MEAN PLATELET VOLUME 10.4 fl (7.4-10.4); MONOCYTE # 0.9 10^3/ul (0.3-0.9); MONOCYTES % 8.4 % (0.0-11.0); NEUTROPHIL # 7.6 10^3/ul (1.6-7.5); NEUTROPHILS % 69.5 % (39.0-77.0); PLATELET COUNT 233 10^3/UL (140-440); RED BLOOD COUNT 3.86 10^6/ul (4.70-6.10); RED CELL DISTRIBUTION WIDTH 13.4 % (11.5-14.5); UNCORRECTED WBC 10.9 10^3/ul (4.8-10.8); WHITE BLOOD COUNT 10.9 10^3/ul (4.8-10.8)
[2016-09-08 06:43] LABS: CONDITION 1
--- NOTE | 2016-09-08 08:20 | PDOCDIS ---
Discharge Instructions DIAGNOSIS Discharge Diagnosis: BPH with LUTS CONDITION Patient Condition: Good HOME CARE INSTRUCTIONS: Diet Instructions: RegularSpecial Diet: regular diet ACTIVITY: Activity Restrictions: Slowly Increase Activity Rest between Activity Avoid heavy lifting No Sexual Activity Do not Drive Bathing Restrictions: Sponge Bath FOLLOW UP/APPOINTMENTS Appointments Follow up with DR Perez in 7-10 days .Call [phone] REFERRALS Other Referrals Home Health agency as per his IPA,Have case therapist arrange for it SHERIE PEREZ MD Sep 08, 2016 08:20
[2016-09-08] MEDS ORDERED: [UNRECOGNIZED DRUG - CODE] PR (08:28)
[2016-09-08] MEDS ORDERED: UDMOM PO (08:28)
[2016-09-08] MEDS ORDERED: FER325 PO (08:28)
[2016-09-08] MEDS ORDERED: DOCU-216 PO (08:28)
[2016-09-08] MEDS ORDERED: TOLT4CAP PO (08:28)
[2016-09-08 08:59] VITALS: BP 143/83; RESP 18
[2016-09-08] MEDS: FERROUS SULFATE (EC) 325 MG TAB PO SCH (09:13)
[2016-09-08] MEDS: TOLTERODINE (SR) 4 MG CAP PO SCH (09:13)
[2016-09-08] MEDS: DOCUSATE SODIUM 100 MG CAP PO SCH (09:13)
--- NOTE | 2016-09-08 12:03 | PN ---
Date/Time of Note Date/Time of Note DATE: 09/08/16 TIME: 11:59 Assessment/Plan VTE Prophylaxis VTE Prophylaxis Intervention: SCD's Lines/Catheters IV Catheter Type (from Nrs): Saline Lock Assessment/Plan Assessment/Plan 61 yo male with no significant past medical history who came in for outpatient surgery prostatectomy. 1. s/p Prostatectomy for BPH / LUTS 2. Anemia - acute blood loss - Stable 3. Chronic Asthma: stable on home meds GI ppx - pepcid DVT ppx - scds Dispo: Continue supportive care Planned for d/c today per urology with becerra Outpt f/u planned with Dr Treadwell Subjective 24 Hr Interval Summary Free Text/Dictation Patient seen and examined. no new complaints Planned for discharge today, stil with becerra and mildly bloody output Exam/Review of Systems Vital Signs Vitals Vital Signs Date Time Temp Pulse Resp B/P Pulse Ox O2 Delivery O2 Flow Rate FiO2 09/08/16 08:59 98.0 89 18 143/83 93 09/05/16 17:17 21 09/04/16 22:00 Nasal Cannula 2.0 Intake and Output 09/07/16 09/07/16 09/08/16 15:00 23:00 07:00 Intake Total 1700 ml 800 ml Output Total 3000 ml 2750 ml Balance -1300 ml -1950 ml Exam Constitutional: alert, oriented Head: normocephalic Eyes: PERRL Respiratory: clear to auscultation Cardiovascular: regular rate and rhythm Musculoskeletal: nl extremities to inspection Results Result Diagram: 09/08/16 0415 09/08/16 0415 Results 24 hrs Laboratory Tests Test 09/08/16 04:15 Anion Gap 13 Basophils # 0.1 Basophils % 0.6 Blood Morphology Comment Blood Urea Nitrogen 11 Calcium Level 8.9 Carbon Dioxide Level 31 Chloride Level 99 Creatinine 0.72 Eosinophils # 0.2 Eosinophils % 2.3 Glucose Level 101 Hematocrit 34.7 L Hemoglobin 11.8 L Lymphocytes # 2.1 Lymphocytes % 19.2 Mean Corpuscular Hemoglobin 30.6 Mean Corpuscular Hemoglobin Concent 34.0 Mean Corpuscular Volume 89.8 Mean Platelet Volume 10.4 Monocytes # 0.9 Monocytes % 8.4 Neutrophils # 7.6 H Neutrophils % 69.5 Nucleated Red Blood Cells # 0.0 Nucleated Red Blood Cells % 0.0 Platelet Count 233 Potassium Level 4.2 Red Blood Count 3.86 L Red Cell Distribution Width 13.4 Sodium Level 139 White Blood Count 10.9 H Medications Medications Current Medications Hydromorphone HCl (Dilaudid) 1 mg Q4H PRN IV PAIN Last administered on 01:12; Admin Dose 1 MG; Start 08/29/16 at 18:30 Docusate Sodium (Colace) 100 mg BID PO Last administered on 09/08/16 09:13; Admin Dose 100 MG; Start 08/30/16 at 10:30 Ferrous Sulfate (Ferrous Sulfate (Ec)) 325 mg BID PO Last administered on 09:13; Admin Dose 325 MG; Start 08/30/16 at 10:30 Tolterodine Tartrate (Detrol La) 4 mg DAILY PO Last administered on 09/08/16 09:13; Admin Dose 4 MG; Start 08/30/16 at 20:00 Belladonna Alkaloids/Opium (B&O No.15a) 1 supp QID PRN [place] bladder spasm Last administered on 09/03/16 20:49; Admin Dose 1 SUPP; Start 08/31/16 at 20:00 Morphine Sulfate (morphine) 4 mg Q4H PRN IV pain/spasm Last administered on 04:18; Admin Dose 4 MG; Start 09/02/16 at 05:00 Senna (Senokot) 1 tab BID PRN PO CONSTIPATION Last administered on 09/06/16 08 :03; Admin Dose 1 TAB; Start 09/03/16 at 11:30 Polyethylene Glycol (Miralax) 17 gm DAILY PRN PO CONSTIPATION Last administered on 09/03/16 13:13; Admin Dose 17 GM; Start 09/03/16 at 11:30 Magnesium Hydroxide (Milk Of Mag) 30 ml DAILY PRN PO CONSTIPATION Last administered on 09/06/16 01:35; Admin Dose 30 ML; Start 09/04/16 at 09:00 LORETTA ROQUE Sep 08, 2016 12:03
[2016-09-08] MEDS ORDERED: HYDROCODONE/APAP (5/325) TAB PO PRN (13:00)
--- NOTE | 2016-09-08 19:10 | DS ---
DATE OF ADMISSION: 08/29/2016 DATE OF DISCHARGE: 09/08/2016 ADMITTING DIAGNOSIS: Benign prostatic hypertrophy with lower urinary tract symptoms. DISCHARGE DIAGNOSIS: Benign prostatic hypertrophy with lower urinary tract symptoms. BRIEF HISTORY AND PHYSICAL FINDING: This is a 61-year-old male who has benign prostatic hypertrophy with lower urinary tract symptoms and that also had an elevated PSA. Has undergone a transrectal u ltrasound of the prostate, and that was benign. The patient, even though he was on medication, he w as still not getting enough relief, and because of the size of the prostate as demonstrated on ultra sound, it was decided to do a suprapubic prostatectomy. Other than that, the patient has no other s ignificant past medical history. PAST SURGICAL HISTORY: Had a left inguinal hernia repair. SOCIAL HISTORY: Does not smoke, does not drink any alcohol, and there is no history of drug abuse. HOSPITAL COURSE: The patient underwent suprapubic prostatectomy on the day of admission, and postop he was having bleeding that needed continuous bladder irrigation. He was admitted to the intensive care unit because of the need for close monitoring so the irrigation does not get clogged and cause him problems. In fact, we had to have the continuous irrigation wide open to keep the urine clear and not allow the bleeding to clot. Initially, we did check his H and H, and it seems the anesthesi ologist at that time did draw the blood from the same arm where his IV was going in, and the hemoglo bin came back at 6.0. However, we went ahead and we gave the patient 1 unit of blood, repeated the H and H, and his hemoglobin was 13.0. Therefore, we did not give him any additional blood transfusi ons. The patient other than for the bleeding and the need for continuous bladder irrigation, he did well, and once his irrigation was slow enough that it was felt safe for him to be transferred to [facility] med-surg floor. He was covered with antibiotic, especially that he had so much bleeding a nd manipulation, I was concerned if he may develop an infection, and he remained afebrile, and his w mike count gradually has come down. His hemoglobin has stabilized, and his last hemoglobin today is 11.8, white count is 10.9, and the hematocrit is 34.7. The patient has been started on ferrous sul fate, as well as on Colace to prevent constipation. He was having bladder spasm. He was put on Det rol-LA for that, and B and O suppositories, and also pain medications with Dilaudid as needed, and t he patient has been ambulating reasonably well. The KYLAH drain that he had was removed, and it was no t draining much. The pathology report came back as benign prostatic hypertrophy. The prostate did weight 128 grams. The patient has been drinking enough water and the return of the urine has been b lood tinged, but there are no blood clots. He still has some bleeding around the catheter. He stil l has the suprapubic tube. His wound is clean. He did have a blister above the area at the left si de of his incision, and that is covered. The patient will be discharged home today with the suprapubic tube and the Jones catheter. He is to drink a lot of water, and also he is supposed to follow up with me in the office. He is instructed to sponge bath. No shower yet. The medication that he is going on include: 1. Treynor 5/325, 40 tablets, 1 tablet every 6 hours p.r.n. pain. 2. Colace 100 mg, #100, 1 tablet every 12 hours. 3. Tolterodine tartrate 4 mg, 30 tablets, 1 tablet daily. 4. Ferrous sulfate 325 mg, #60, 1 tablet twice a day. 5. B and O suppository, 30 suppositories, 1 suppository every 6 hours p.r.n. 5. Milk of Magnesia 300 mL, 30 mL p.r.n. for constipation. Patient is instructed to give me a call if there is any problem, and he is supposed to follow up wit h me in about 7 to 10 days, and he will call for an appointment. He will go home with home health t o check on him for about a week, and then I will see him in the office. Dictated By: SHERIE JAUREGUI/TERRI Conf#: [id number] DID#: [id number]
== END 2016-09-08 15:30 | disposition home health service (06) | DRG 707 ==
LOC: EDSTATUS 07:30 → REC 08-29 10:24 → ICU 08-29 18:15 → MS1 09-02 21:28
PROVIDERS: ADMIT Urology; ATTEND Urology
PROC: 30233N1 Transfusion of Nonautologous Red Blood Cells into Peripheral Vein, Percutaneous Approach (ICD-10-PCS; 2016-08-29)
PROC: 0T9B30Z Drainage of Bladder with Drainage Device, Percutaneous Approach (ICD-10-PCS; 2016-08-29)
PROC: 3E1K38Z Irrigation of Genitourinary Tract using Irrigating Substance, Percutaneous Approach (ICD-10-PCS; 2016-08-29)
PROC: 0VT00ZZ Resection of Prostate, Open Approach (ICD-10-PCS; principal; 2016-08-29 12:30)
DX: N40.1 Benign prostatic hyperplasia with lower urinary tract symptoms (principal); D62 Acute posthemorrhagic anemia; N32.89 Other specified disorders of bladder; R31.9 Hematuria, unspecified; J45.909 Unspecified asthma, uncomplicated
CPT/HCPCS: 36430; 80048; 80053; 85014; 85018; 85025; 86850; 86900; 86901; 86920; 87081; 87086; 88305; J0330; J0360; J0696; J1100; J1170; J2270; J2274; J2710; J3010; J7042; J7120; P9016

== ENCOUNTER 2016-08-02 01:22 | Emergency (ER) | payer OTHER ==
[~2016-08-02] VITALS: Ht 182.9 cm; Wt 105.5 kg
[2016-08-02 01:28] VITALS: Ht 182.9 cm; Wt 105.5 kg
[2016-08-02] MEDS ORDERED: ALBUTEROL 0.5% (NEB) 2.5 MG/0.5 ML AMP INH STA (01:51)
[2016-08-02] MEDS ORDERED: METHYLPREDNISOLONE 125 MG INJ IM STA (01:51)
[2016-08-02] MEDS ORDERED: MOME13HF2 INHALATION (01:54)
[2016-08-02] MEDS ORDERED: MONT4TAB10 PO (01:54)
[2016-08-02] MEDS ORDERED: ALBU8.5H3 INH ×2 (01:54→03:29)
--- NOTE | 2016-08-02 01:57 | ERD ---
ER Documentation Chief Complaint Date/Time DATE: 08/02/16 TIME: 01:53 Chief Complaint asthma exacerbation HPI 61-year-old male presents here in emergency department for complaints of wheezing and shortness of breath and cough for the last 2 days. Patient has been having dry cough and on and off wheezing. Patient has episodes of shortness of breath. Patient has history of asthma, taking inhaler, albuterol, Dilaudid, montelukast home for asthma. Patient has any chest pain or palpitations. Patient denies any dyspnea on exertion or dyspnea on lying him. Patient denies any fever or chills. Patient denies any sick contacts. ROS All systems reviewed and are negative except as per history of present illness. Medications Home Meds Reported Medications Montelukast Sodium* (Montelukast Sodium*) Unknown Strength Tab.chew, PO DAILY, # 30 TAB 08/02/16 Albuterol Sulfate* (Proair HFA*) Unknown Strength Hfa.aer.ad, INH Q4H Y for WHEEZING AND SOB, #1 INHALER 08/02/16 Mometasone-Formoterol (Dulera) Unknown Strength Hfa.aer.ad, INHALATION BID, #1 INHALER 08/02/16 Allergies Allergies: Coded Allergies: No Known Allergy (Unverified , 08/02/16) PMhx/Soc Medical and Surgical Hx: pt denies Surgical Hx History of Surgery: No Anesthesia Reaction: No Hx Neurological Disorder: No Hx Respiratory Disorders: Yes (asthma) Hx Cardiac Disorders: No Hx Psychiatric Problems: No Hx Miscellaneous Medical Probl: No Hx Alcohol Use: No Hx Substance Use: No Hx Tobacco Use: No FmHx Family History: No coronary disease, No diabetes, No other Physical Exam Vitals Vital Signs Date Time Temp Pulse Resp B/P Pulse Ox O2 Delivery O2 Flow Rate FiO2 08/02/16 02:07 74 20 94 21 08/02/16 01:28 97.6 73 18 156/92 93 Physical Exam GENERAL: The patient is well developed and appropriate for usual state of health, in no apparent distress. CHEST: Diffuse wheezing bilaterally. There are no rales, crackles or rhonchi. HEART: Regular rate and rhythm. No murmurs, clicks, rubs or gallops. No S3 or S4. ABDOMEN: Soft, nontender and nondistended. Good bowel sounds. No rebound or guarding. No gross peritonitis. No gross organomegaly or masses. No Gee sign or McBurney point tenderness. BACK: No midline or flank tenderness. EXTREMITIES: Equal pulses bilaterally. There is no peripheral clubbing, cyanosis or edema. No focal swelling or erythema. Full range of motion. Grossly neurovascularly intact. NEURO: Alert and oriented. Cranial nerves 2-12 intact. Motor strength in all 4 extremities with 5/5 strength. Sensation grossly intact. Normal speech and gait. SKIN: There is no apparent rash or petechia. The skin is warm and dry. HEMATOLOGIC AND LYMPHATIC: There is no evidence of excessive bruising or lymphedema. No gross cervical, axillary, or inguinal lymphadenopathy. Results 24 hrs Current Medications Medications (Trade) Dose Ordered Sig/Sarah Route PRN Reason Start Time Stop Time Status Last Admin Dose Admin Albuterol (Proventil 0.5% (Neb)) 10 mg ONCE STAT INH 08/02/16 01:51 08/02/16 01:53 DC 08/02/16 01:58 Methylprednisolone Sodium Succinate (Solu-Medrol) 125 mg ONCE STAT IM 08/02/16 01:51 08/02/16 01:53 DC 08/02/16 02:06 Breathing treatment of albuterol and Solu Medrol IM was given here in emergency department, after treatment, patient's lungs sounds are clear and patient's oxygenation is better. Patient verbalized feeling much better. PROCEDURE: XR Chest. CLINICAL INDICATION: Asthma exacerbation.. TECHNIQUE: Single frontal chest x-ray. COMPARISON: None. FINDINGS: Heart is enlarged.. There is no CHF.. Minimal bibasilar atelectasis.. There is no pleural effusion. There is no pneumothorax. The osseous structures are unremarkable. IMPRESSION: Cardiomegaly. Minimal bibasilar atelectasis. RPTAT: HMVK .Damien Renee MD, Date Time Electronically viewed and signed by .Damien Renee MD, on 08/02/2016 03:04 .K/ CC: EVERETTE SILVA [employer] Procedures/MDM Medical Decision Making: Patient symptoms are most likely consistent with acute bronchitis with acute asthma exacerbation. There is low suspicion for Pneumonia at this time since patients lungs sounds are clear, patient O2 saturation is normal and patient doesnt show any respiratory distress. Patients chest xray doesnt show infiltrates or any other cardiopulmonary emergencies at this time. There is low suspicion for other cardiopulmonary emergencies at this time such as CHF, Pulmonary Embolism, Pneumothorax, or any other cardiopulmonary emergencies at this time. There is low suspicion for sepsis. Patient appears well and is hemodynamically stable. Fever is controlled with medicines. Disposition: Home. Condition: Stable Prescriptions: Albuterol, prednisone, continued Montelukast at home, guaifenesin with codeine Zyrtec. Instructions: Patient is advised to take medications as prescribed. Patient is advised to rest. Patient advised to increase fluid intake, do humidifier at home and if possible, do salt water gargles. Patient is advised that if symptoms are worse, shortness of breath, uncontrolled fever, stridor, vomiting, worst signs and symptoms to return to emergency department immediately. Otherwise, patient is advised to follow up with primary doctor in 5-7 days. Departure Diagnosis: Primary Impression: Asthma with acute exacerbation Asthma severity: unspecified severity Qualified Code: J45.901 - Asthma with acute exacerbation, unspecified asthma severity Additional Impression: Acute bronchitis Bronchitis organism: unspecified organism Qualified Code: J20.9 - Acute bronchitis, unspecified organism Condition: Stable Patient Instructions: Bronchitis With Wheezing (Adult) Additional Instructions: Patient is advised to take medications as prescribed. Patient is advised to rest. Patient advised to increase fluid intake, do humidifier at home and if possible, do salt water gargles. Patient is advised that if symptoms are worse, shortness of breath, uncontrolled fever, stridor, vomiting, worst signs and symptoms to return to emergency department immediately. Otherwise, patient is advised to follow up with primary doctor in 5-7 days. EVERETTE SILVA NP Aug 02, 2016 01:57
--- NOTE | 2016-08-02 03:04 | RADRPT ---
PROCEDURE: XR Chest. CLINICAL INDICATION: Asthma exacerbation.. TECHNIQUE: Single frontal chest x-ray. COMPARISON: None. FINDINGS: Heart is enlarged.. There is no CHF.. Minimal bibasilar atelectasis.. There is no pleural effusion . There is no pneumothorax. The osseous structures are unremarkable. IMPRESSION: Cardiomegaly. Minimal bibasilar atelectasis. RPTAT: [facility]VK .Damien Renee MD, MD Date Time Electronically viewed and signed by .Damien Renee MD, on 08/02/2016 03:04 .K/
[2016-08-02] MEDS ORDERED: PRED50TA PO (03:29)
[2016-08-02] MEDS ORDERED: CETI10CA PO (03:29)
[2016-08-02] MEDS ORDERED: GUAI473L22 PO (03:29)
[2016-08-02 04:28] VITALS: BP 148/90; PULSE 80; RESP 18; TEMP 97.9
== END 2016-08-02 04:29 | disposition home or self-care (01) ==
LOC: FTE 01:22
DX: J45.901 Unspecified asthma with (acute) exacerbation (principal); J20.9 Acute bronchitis, unspecified
CPT/HCPCS: 71010; 94644; 96372; J2930; Z7502; Z7610

== ENCOUNTER 2017-07-19 12:24 | Emergency (ER) | END 2017-07-19 17:56 | disposition home or self-care (01) ==

== ENCOUNTER 2017-09-02 07:47 | Emergency (ER) | END 2017-09-02 09:35 | disposition home or self-care (01) ==

== ENCOUNTER 2018-07-03 11:37 | Emergency (ER) | END 2018-07-03 13:40 | disposition home or self-care (01) ==

== ENCOUNTER 2018-12-15 07:52 | Emergency (ER) | payer OTHER ==
[~2018-12-15] VITALS: Ht 175.3 cm; Wt 101.2 kg
[~2018-12-15 07:52] MED LIST: ALBU18HF INHALATION; BENZ-6 PO; FLUT9.9S NASAL; GUAI-173 PO; SODI126M NASAL
[2018-12-15 07:56] VITALS: BP 152/96; PULSE 81; RESP 18; Ht 175.3 cm; Wt 101.2 kg
[2018-12-15] MEDS ORDERED: SULF1TAB31 PO (08:24)
[2018-12-15] MEDS ORDERED: IBUP-1542 PO (08:24)
[2018-12-15] MEDS ORDERED: CEPH-443 PO (08:24)
--- NOTE | 2018-12-15 09:05 | ERD ---
ER Documentation Chief Complaint Chief Complaint LT THUMB PAIN /SWELLING X 6 DAYS , RT KNEE PAIN X 3 DAYS HPI Patient is a 63-year-old male with hypertension who presents with left thumb re dness and pain. His symptoms started on Thursday. 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 He denies gout. He has no fevers. He tried diclofenac. He denies any recent trauma. Upon review of old medical records the patient has a few visits for multiple complaints. He does have a primary doctor. ROS All systems reviewed and are negative except as per history of present illness. Medications Home Meds Active Scripts Ibuprofen* (Motrin*) 600 Mg Tab, 600 MG PO Q6H PRN for PAIN AND OR ELEVATED TEMP, #30 TAB Prov:TITI LIMON MD 12/15/18 Cephalexin* (Keflex*) 500 Mg Capsule, 500 MG PO QID for 7 Days, CAP Prov:TITI LIMON MD 12/15/18 Sulfamethoxazole/Trimethoprim* (Bactrim Ds* Tablet) 1 Each Tablet, 1 TAB PO BID, #14 TAB Prov:TITI LIMON MD 12/15/18 Albuterol Sulfate* (Ventolin HFA*) 18 Gm Hfa.aer.ad, 2 PUFF INHALATION Q4H, #1 INHALER Prov:MELINA SANCHEZ NP 07/03/18 Sodium Chloride (Saline Nasal Mist) 126 Ml Mist, 2 SPRAY NASAL Q2H PRN for NASAL CONGESTION, #1 BOTTLE Prov:MELINA SANCHEZ NP 07/03/18 Fluticasone Propionate (Flonase Allergy Relief) 9.9 Ml Hodgen.susp, 1 SPRAY NASAL DAILY, #1 BOTTLE TO EACH NOSTRIL Prov:MELINA SANCHEZ NP 07/03/18 Guaifenesin* (Tussin*) 100 Mg/5 Ml Syrup, 200 MG PO Q6 PRN for COUGH for 3 Days, ML Prov:SUJIT ALMANZAR 09/02/17 Benzonatate* (Tessalon Perle*) 100 Mg Capsule, 100 MG PO Q8H PRN for COUGH, #20 CAP Prov:ALEKSANDR NJ PA-C 07/19/17 Albuterol Sulfate* (Ventolin HFA*) 18 Gm Hfa.aer.ad, 2 PUFF INHALATION Q4H, #1 INHALER Prov:ALEKSANDR NJ Kathryn GUO 07/19/17 Allergies Allergies: Coded Allergies: No Known Allergy (Unverified , 07/03/18) PMhx/Soc History of Surgery: Yes (LT INGUINAL HERNIA REPAIR ) Anesthesia Reaction: No Hx Neurological Disorder: No Hx Respiratory Disorders: Yes (ASTHMA) Hx Cardiac Disorders: No Hx Psychiatric Problems: No Hx Miscellaneous Medical Probl: Yes (overweight) Hx Alcohol Use: No Hx Substance Use: No Hx Tobacco Use: No Smoking Status: Never smoker FmHx Family History: No diabetes Physical Exam Vitals Vital Signs Date Temp Pulse Resp B/P (MAP) Pulse Ox O2 O2 Flow FiO2 Time Delivery Rate 12/15/18 98.9 81 18 152/96 98 07:56 (114) Physical Exam Const: No acute distress Head: Atraumatic Eyes: Normal Conjunctiva ENT: Normal External Ears, Nose and Mouth. Neck: Full range of motion. No meningismus. Resp: Clear to auscultation bilaterally Cardio: Regular rate and rhythm, no murmurs Abd: Soft, non tender, non distended. Normal bowel sounds Skin: Redness of the skin of the left thumb, full movement, no crepitus Back: No midline or flank tenderness Ext: No cyanosis, or edema Neur: Awake and alert Psych: Normal Mood and Affect Procedures/MDM Patient is a 63-year-old male who presents with redness to the left thumb. This area is tender to palpation I believe this is an acute cellulitis. I doubt flexor tenosynovitis at this time. The patient will be given Bactrim and Keflex as well as ibuprofen. He will need to follow-up with his primary doctor within 24 to 48 hours for reevaluation. The patient can return sooner for any worsening symptoms. Departure Diagnosis: Primary Impression: Cellulitis Site of cellulitis: extremity Site of cellulitis of extremity: upper extremity Laterality: left Qualified Codes: L03.114 - Cellulitis of left upper limb Condition: Fair Patient Instructions: Cellulitis Referrals: Dr. Marrufo your doctor Additional Instructions: Llame al doctor MAANA y abdirashid guillaume LUNA PARA DENTRO DE 1-2 JUAREZ.Dgale a la secretaria que nosotros le instruimos hacer esta luna.Avise o llame si mcdonough condicin se empeora antes de la luna. Regresa aqui si peor o no mejor. TITI LIMON MD December 15, 2018 09:05
[2018-12-16] MEDS ORDERED: ACET500C5 PO (16:35)
[2018-12-16] MEDS ORDERED: NEOM28OI2 TP (16:35)
== END 2018-12-15 08:38 | disposition home or self-care (01) ==
LOC: FTE 07:52
DX: L03.114 Cellulitis of left upper limb (principal); I10 Essential (primary) hypertension; J45.909 Unspecified asthma, uncomplicated
CPT/HCPCS: 99283

== ENCOUNTER 2018-12-16 13:02 | Emergency (ER) | payer OTHER ==
[~2018-12-16] VITALS: Ht 182.9 cm; Wt 100.2 kg
[~2018-12-16 13:02] MED LIST changes: +CEPH-443 PO; +IBUP-1542 PO; +SULF1TAB31 PO
[2018-12-16 13:11] VITALS: BP 151/86; PULSE 86; RESP 18; Ht 182.9 cm; Wt 100.2 kg
[2018-12-16] MEDS ORDERED: ACETAMINOPHEN 325 MG TAB PO ONE (15:30)
[2018-12-16] MEDS ORDERED: ACET500C5 PO (16:35)
[2018-12-16] MEDS ORDERED: NEOM28OI2 TP (16:35)
--- NOTE | 2018-12-16 16:37 | ERD ---
ER Documentation Chief Complaint Chief Complaint left knee pain/injury due to fall HPI 63-year-old male sustained a mechanical fall today. He has an abrasion on his left anterior knee. Is no restricted range of motion weakness or deficits. Denies head injury, additional injuries. Tetanus is not up-to-date. ROS All systems reviewed and are negative except as per history of present illness. Medications Home Meds Active Scripts Neomycin Guadalupe/Bacitrac Zn/Poly (Triple Antibiotic Ointment) 28 Gm Oint...g., 28 GM TP TID for 5 Days Prov:AIMEE BRAVO MD 12/16/18 Acetaminophen* (Tylophen*) 500 Mg Capsule, 1 CAP PO Q6H PRN for PAIN AND OR ELEVATED TEMP, #15 CAP Prov:AIMEE BRAVO MD 12/16/18 Ibuprofen* (Motrin*) 600 Mg Tab, 600 MG PO Q6H PRN for PAIN AND OR ELEVATED TEMP, #30 TAB Prov:TITI LIMON MD 12/15/18 Cephalexin* (Keflex*) 500 Mg Capsule, 500 MG PO QID for 7 Days, CAP Prov:TITI LIMON MD 12/15/18 Sulfamethoxazole/Trimethoprim* (Bactrim Ds* Tablet) 1 Each Tablet, 1 TAB PO BID, #14 TAB Prov:TITI LIMON MD 12/15/18 Albuterol Sulfate* (Ventolin HFA*) 18 Gm Hfa.aer.ad, 2 PUFF INHALATION Q4H, #1 INHALER Prov:MELINA SANCHEZ NP 07/03/18 Sodium Chloride (Saline Nasal Mist) 126 Ml Mist, 2 SPRAY NASAL Q2H PRN for NASAL CONGESTION, #1 BOTTLE Prov:MELINA SANCHEZ NP 07/03/18 Fluticasone Propionate (Flonase Allergy Relief) 9.9 Ml [place].susp, 1 SPRAY NASAL DAILY, #1 BOTTLE TO EACH NOSTRIL Prov:MELINA SANCHEZ NP 07/03/18 Guaifenesin* (Tussin*) 100 Mg/5 Ml Syrup, 200 MG PO Q6 PRN for COUGH for 3 Days, ML Prov:SUJIT ALMANZAR 09/02/17 Benzonatate* (Tessalon Perle*) 100 Mg Capsule, 100 MG PO Q8H PRN for COUGH, #20 CAP Prov:CLEMALEKSANDR Kathryn GUO 07/19/17 Albuterol Sulfate* (Ventolin HFA*) 18 Gm Hfa.aer.ad, 2 PUFF INHALATION Q4H, #1 INHALER Prov:ALEKSANDR NJWilbert GUO 07/19/17 Allergies Allergies: Coded Allergies: No Known Allergy (Unverified , 07/03/18) PMhx/Soc History of Surgery: Yes (LT INGUINAL HERNIA REPAIR ) Anesthesia Reaction: No Hx Neurological Disorder: No Hx Respiratory Disorders: Yes (ASTHMA) Hx Cardiac Disorders: No Hx Psychiatric Problems: No Hx Miscellaneous Medical Probl: No Hx Alcohol Use: No Hx Substance Use: No Hx Tobacco Use: No Smoking Status: Never smoker FmHx Family History: No diabetes, No coronary disease, No other Physical Exam Vitals Vital Signs Date Temp Pulse Resp B/P (MAP) Pulse Ox O2 O2 Flow FiO2 Time Delivery Rate 12/16/18 98.9 86 18 151/86 94 13:11 (107) Physical Exam Const: No acute distress Head: Atraumatic Eyes: Normal Conjunctiva ENT: Normal External Ears, Nose and Mouth. Neck: Full range of motion. No meningismus. Resp: Clear to auscultation bilaterally Cardio: Regular rate and rhythm, no murmurs Abd: Soft, non tender, non distended. Normal bowel sounds Skin: No petechiae or rashes Back: No midline or flank tenderness Ext: No cyanosis, or edema. Abrasion on the left anterior knee without significant laceration to the dermis. No bony tenderness or deformities appreciated. Mild generalized anterior knee tenderness. Patient ambulatory with minimal discomfort. Neur: Awake and alert Psych: Normal Mood and Affect Results 24 hrs Current Medications Medications Dose Sig/Sarah Start Time Status Last (Trade) Ordered Route PRN Stop Time Admin Dose Reason Admin 650 mg ONCE ONCE 12/16/18 DC 12/16/18 Acetaminophen PO 15:30 15:12 (Tylenol 12/16/18 15:31 Tab) Procedures/MDM Tetanus booster given. Wound was cleansed and dressed. X-ray left knee 3V Interpreted by me: Bones: No fracture Joints: No dislocation Foreign body: None impression-degenerative changes without findings of fracture, dislocation, foreign body in left knee x-ray Patient presents after mechanical fall today with signs of the left knee can contusion and abrasion without signs of fracture dislocation, infection, ischemia or deficits. Discharged home with prescription of Tylenol, recommendations for wound care, antibiotic cream, primary care follow-up and return precautions redness, fevers, new worsening symptoms. Departure Diagnosis: Primary Impression: Abrasion Additional Impression: Knee injury Encounter type: initial encounter Laterality: left Qualified Codes: S89.92XA - Unspecified injury of left lower leg, initial encounter Condition: Stable Patient Instructions: Abrasion Additional Instructions: X-ray normal. Cheque otro vez con guadalupe doctor primario en el proximo golden or regresa para mas o nueva simptomas- rivas zavala fiebre. AIMEE BRAVO MD December 16, 2018 16:37
[2018-12-16] MEDS ORDERED: DIPHTH/TET/ACEL PERTUSS (ADULT) 0.5 ML VIAL IM* ONE (17:00)
== END 2018-12-16 16:56 | disposition home or self-care (01) ==
LOC: FTE 13:02
DX: S80.212A Abrasion, left knee, initial encounter (principal); J45.909 Unspecified asthma, uncomplicated; W18.39XA Other fall on same level, initial encounter; Y92.9 Unspecified place or not applicable; Z23 Encounter for immunization
CPT/HCPCS: 73562; 90715; Z7610; 90471